=== PATIENT | male | born 1945 | race Hispanic/Latino ===

== ENCOUNTER 2022-07-27 20:21 | Inpatient (IN) | payer OTHER, SELFPAY ==
--- NOTE | ~2022-07-27 | XR_ITS ---
EXAMINATION: XR chest 2V DATE: 07/30/2022 12:54 INDICATION: Interstitial lung disease. Weakness. TECHNIQUE: Frontal and lateral views of the chest were obtained on 3 radiographs. COMPARISON: Chest CT 07/28/2022 FINDINGS: The lung volumes are normal. There is a diffuse interstitial pattern in the lungs with a lo wer lung predominance. No pleural effusion or pneumothorax. Cardiomegaly is noted. IMPRESSION: 1. Chronic interstitial lung disease. 2. Cardiomegaly. Reviewed, dictated and finalized at location A. 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
--- NOTE | ~2022-07-27 | CT_ITS ---
EXAMINATION: CT chest high resolution wo il DATE: 07/28/2022 16:17 INDICATION: Interstitial lung disease TECHNIQUE: Computed tomography (CT) of the chest was performed without intravenous contrast. The dose -length product (DLP) was 258.19 mGy-cm. Automated exposure control and iterative reconstruction tech nique were employed. COMPARISON: None FINDINGS: There are areas of septal thickening, groundglass opacity, and honeycombing throughout the lungs. There are airspace opacities of the lower lobes. No pleural effusion or pneumothorax. The hear t size is normal. There are no pathologically enlarged thoracic lymph nodes. Interstitial edematous p ancreatitis is noted. There is a healed right clavicle fracture. There is mild thoracic spondylosis. IMPRESSION: 1. Diffuse lung disease in a pattern of usual interstitial pneumonia (UIP) with superimposed airspace opacities in the lower lobes which could reflect atelectasis versus pneumonia. Reviewed, dictated and finalized at location F. [employer] IMPRESSION: 1. Diffuse lung disease in a pattern of usual interstitial pneumonia (UIP) with superimposed airspace opacities in the lower lobes which could reflect atelect asis versus pneumonia.
--- NOTE | ~2022-07-27 | US_ITS ---
EXAMINATION: US abdomen limited DATE: 07/28/2022 10:29 INDICATION: Abnormal liver function tests. Abdominal pain. TECHNIQUE: Multiple grayscale and Doppler ultrasound images of the abdomen were obtained. COMPARISON: CT abdomen and pelvis 07/28/2022 FINDINGS: The pancreas demonstrates heterogeneous echogenicity, consistent with acute interstitial pa ncreatitis. There is normal flow in main portal vein. There is portal vein thrombosis in anterior seg ment right hepatic lobe. The gallbladder is partially obscured by bowel. The gallbladder is normal in size and contains sludge. Gallbladder wall thickening is noted. There is no sonographic Johnson sign. IMPRESSION: 1. Acute interstitial pancreatitis. 2. Portal vein thrombosis in anterior segment right hepatic lobe. 3. Gallbladder sludge. Gallbladder wall thickening may be secondary to interstitial edema, chronic li giovanna disease, or chronic cholecystitis. Reviewed, dictated and finalized at location A. SS TEST TECHNICIAN IMPRESSION: 1. Acute interstitial pancreatitis. 2. Portal vein thrombosis in anterior segment right hepatic lobe. 3. Gallbladder sludge. Gallbladder wall thickening may be secondary to intersti tial edema, chronic liver disease, or chronic cholecystitis.
--- NOTE | ~2022-07-27 | MR_ITS ---
EXAMINATION: MR MRCP wo/w con/w 3D wo ind DATE: 07/28/2022 13:05 INDICATION: Elevated liver enzymes. Abdominal pain. TECHNIQUE: Magnetic resonance imaging (MRI) of the abdomen was performed without and with 17 mL Multi zohreh intravenous contrast. Sequences included coronal T2-weighted SS-FSE, coronal T2-weighted FS SS- FSE, coronal T2-weighted FS FIESTA, axial T2-weighted FS FIESTA, axial T2-weighted FIESTA, sagittal T 2-weighted SS-FSE, axial T1-weighted dual-echo FSPGR, axial T2-weighted SS-FSE, axial T1-weighted LAV A, axial T2-weighted STIR FSE. Thick-slab T2-weighted FRFSE-XL images were obtained for magnetic reso nance cholangiopancreatography (MRCP). Rotating maximum intensity projection 3-D reconstructions of t he volumetric data were created by the technologist. Postcontrast sequences included a time course of axial T1-weighted LAVA. COMPARISON: CT and ultrasound dated 07/28/2022 FINDINGS: ABDOMEN MRI: Evaluation moderately limited by motion artifact on multiple sequences particularly the fat saturated sequences including postcontrast imaging. Heart size is normal. No pericardial or pleural effusion. Peripheral lung disease in the dependent as pect of the bilateral lower lobes with appearance on prior CT favoring chronic interstitial lung dise ase although superimposed more acute pulmonary edema or pneumonia is not excludable. Absent flow voids on T2-weighted imaging corresponding geographic regions of likely compensatory roxanne rial phase enhancement consistent with portal venous thrombosis within supplying the anterior right h epatic and the anterior aspect of the lateral segments of the left hepatic lobe. There is associated periportal edema. There is peripancreatic edema surrounding the tail of the pancreas consistent with acute interstitial pancreatitis. No loculated fluid collections to suggest abscess, walled off necros is or pseudocyst formation. There are a few gallstones within the gallbladder with mild edematous gal lbladder wall thickening. There is no dilation of the gallbladder and there is no sonographic Johnson' s on a prior ultrasound to suggest acute cholecystitis and this this more likely due to either chroni c cholecystitis or liver disease as with the previous noted periportal edema. Bilateral adrenal glands are normal. Bilateral T2 hyperintense renal cysts, the largest on the left i s a 7.3 cm Bosniak 2 cyst with thin internal septations with some calcification along the internal se ptation but without a nodular enhancing soft tissue component. Visualized portion of the bowels are u nremarkable. No pathologically enlarged abdominal lymphadenopathy. Bones are unremarkable with normal marrow signal throughout. ABDOMEN MRCP: The MRCP images are also mild to moderately limited by motion artifact. Interpretations augmented by several of the T2-weighted sagittal and axial images which are less affected by the motion. The commo n bile duct measures up to 7 mm but tapers to 4 mm in diameter at the proximal common bile duct with continued gradual tapering to the ampulla. No intrahepatic biliary ductal dilation. No evident dilati on of the main pancreatic duct. No intraluminal filling defects identified to suggest obstructing cho ledocholithiasis. IMPRESSION: 1. Acute interstitial pancreatitis. 2. Cholelithiasis with wall thickening of the gallbladder but without dilation or sonographic Johnson sign to suggest acute cholecystitis and the wall thickening is more likely due to either chronic chol ecystitis or reactive edema related to the liver disease. 3. No evident choledocholithiasis or dilation of the common bile duct, main pancreatic duct or intrah epatic biliary tree. 4. Portal venous thrombosis in the anterior segment of the right hepatic lobe and in the anterior por tion of the lateral segments of the left hepatic lobe. 5. Peripheral lung disease in the lower lungs w
--- NOTE | ~2022-07-27 | CT_ITS ---
EXAMINATION: CT abdomen pelvis w con DATE: 07/28/2022 01:32 INDICATION: Epigastric and left lower quadrant abdominal pain. TECHNIQUE: Computed tomography (CT) of the abdomen and pelvis was performed with 100 mL Omnipaque 350 intravenous contrast. Automated exposure control and iterative reconstruction technique were employe d. The dose-length product was 1110.37 mGy-cm. COMPARISON: None. FINDINGS: The visualized portions of the lung bases demonstrate peripheral septal thickening and bila teral honeycombing. There are airspace and groundglass opacities in the peripheral lungs, worst in le ft lower lobe. No pleural effusion. The heart size is normal. No pericardial effusion. There is mary anne l vein thrombosis in anterior segment right hepatic lobe. There is wall thickening of the gallbladder , which is normal in size. The spleen is normal. There is fat stranding around the pancreas, consiste nt with acute interstitial pancreatitis. The adrenal glands are normal. There are cysts in the kidney s measuring up to 7.1 cm on the left. The prostate is mildly enlarged. There is diverticulosis of the colon without evidence of diverticulitis. The appendix is normal. There are no dilated loops of emre l. There are no pathologically enlarged lymph nodes. There is no free intraperitoneal fluid. There is severe lower lumbar spondylosis. IMPRESSION: 1. Acute interstitial pancreatitis. 2. Portal vein thrombosis in anterior segment right hepatic lobe. 3. Gallbladder wall thickening, which may be secondary to interstitial edema, chronic liver disease, or chronic cholecystitis. 4. Diffuse lung disease, consistent with chronic interstitial lung disease in a pattern of usual inte rstitial pneumonia. Superimposed pneumonia cannot be excluded. Reviewed, dictated and finalized at location A. 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 Acute interstitial pancreatitis. 2. Portal vein thrombosis in anterior segment right hepatic lobe. 3. Gallbladder wall thickening, which may be secondary to interstitial edema, c hronic liver disease, or chronic cholecystitis. 4. Diffuse lung disease, consistent with chronic interstitial lung disease in a pattern of usual interstitial pneumonia. Superimposed pneumonia cannot be excl uded.
[2022-07-27 20:33] VITALS: BP 147/73; PULSE 74; RESP 16; TEMP 38; O2SAT 97
[2022-07-27 21:45] LABS: Basophils Percent Auto 0.1 % (0.2-1.2); Eosinophils Percent Auto 0.2 % (0-4.4); Hematocrit 47.1 % (42.0-52.0); Hemoglobin 15.9 g/dL (14.0-18.0); Immature Granulocyte Absolute 0.14 K/mm3 (0.00-0.031); Immature Granulocyte Percent A 0.8 % (0-0.5); Lymphocytes Absolute Auto 2.06 K/mm3 (0.9-3.2); Lymphocytes Percent Auto 12.2 % (18.3-44.2); Mean Corpuscular HGB Conc 33.8 g/dl (32-36); Mean Corpuscular Hemoglobin 28.7 pg (26-34); Monocytes Absolute Auto 1.3 K/mm3 (0.1-0.6); Monocytes Percent Auto 7.5 % (2.6-8.5); Neutrophils Absolute Auto 13.4 K/mm3 (1.3-6.7); Neutrophils Percent Auto 79.2 % (45.5-73.1); Platelet Count Result 405 k/mm3 (150-375); Red Blood Count 5.54 M/mm3 (4.6-6.20); Red Cell Distribution Width 14.8 % (11.5-14.5); White Blood Count 16.9 K/mm3 (4.5-10.0)
[2022-07-27 21:48] LABS: Add Urine Microscopic? YES; Appearance Urine Clear (Clear); Bilirubin Urine 3+ (Negative); Blood Urine Negative (Negative); Color Urine Orange (Yellow); Glucose Urine UA Negative (Negative); Ketones Urine Trace mg/dL (Negative); Leukocyte Esterase Ur Negative LEU/UL (Negative); Nitrate Urine Negative (Negative); Protein Urine 1+ mg/dL (Negative); Specific Grav Ur 1.015 (1.001-1.035)
[2022-07-27 21:56] LABS: Mucus Urine Rare /lpf; RBC Urine 0-2 /hpf (0-2); Squamous Epithelial Cell Urine Rare /hpf (Few); WBC Urine 0-3 /hpf
[2022-07-27 22:07] LABS: Alanine Aminotransferase 101 U/L (6-50); Albumin Level 3.8 g/dL (3.5-5.1); Alkaline Phosphatase 443 U/L (38-126); Anion Gap 14 mmol/L (8-16); Aspartate Amino Transferase 96 U/L (17-59); Bilirubin,Total 8.5 mg/dL (0.2-1.3); Blood Urea Nitrogen 14 mg/dL (9-20); Calcium 8.5 mg/dL (8.4-10.2); Carbon Dioxide 25 mmol/L (22-30); Chloride 96 mmol/L (98-107); Estimated Glomerular Filt Rate > 60; Glucose 89 mg/dL (65-110); Potassium 4.1 mmol/L (3.4-5.0); Sodium 135 mmol/L (137-145)
[2022-07-27 23:04] VITALS: BP 136/81; PULSE 71; RESP 30; O2SAT 97
[2022-07-27 23:05] VITALS: O2SAT 97
[2022-07-27 23:35] VITALS: O2SAT 97
[2022-07-27 23:37] LABS: Lipase 6610 U/L (23-300)
[2022-07-27 23:48] VITALS: O2SAT 96
[2022-07-28] VITALS (13 sets, daily range): BP systolic 102–133; BP diastolic 57–72; PULSE 60–96; RESP 14–20; TEMP 36.4–36.7; O2SAT 94–99; BMI 25.0
[2022-07-28] MEDS: SODIUM CHLORIDE 0.9% IV 1,000 ML 999 ML IV CONT ×2 (00:03→02:51)
[2022-07-28] MEDS: ONDANSETRON INJ 4 MG/2 ML VIAL IV PUSH (00:03)
[2022-07-28] MEDS: IBUPROFEN IV 400 MG in SODIUM CHLORIDE 0.9% IV 100 ML 200 MG IVPB (00:12)
--- NOTE | 2022-07-28 00:23 | ED.ABDPAIN ---
HPI - Abdominal Pain General Chief Complaint: Abdominal Pain <CHILANGO Thurman Last Filed: 07/28/22 03:43> Stated Complaint: Abd pain, n/v/d after eating <CHILANGO Thurman Last Filed: 07/28/22 03:43> Time Seen by Provider: 07/27/22 22:59 <CHILANGO Thurman Last Filed: 07/28/22 03:43> Source: patient and family <CHILANGO Thurman Last Filed: 07/28/22 03:43> Mode of arrival: ambulatory <CHILANGO Thurman Last Filed: 07/28/22 03:43> Limitations: language barrier <CHILANGO Thurman Last Filed: 07/28/22 03:43> History of Present Illness HPI narrative: Patient is a 77-year-old male who presents the ED with report of abdominal pain. Patient is primarily Mozambican-speaking. Family member is at bedside assisted in providing information. [employer] intensive care nurse was offered. Patient reports having pain for the past 5 to 6 days in his upper abdomen. He also reports subjective fevers at home, nausea, vomiting, diarrhea. Denies rectal bleeding, urinary sx's. He last took ibuprofen earlier this morning. He has never had pain like this before. <Albania Salgado PA-C - Last Filed: 07/28/22 03:43> Related Data Allergies/Adverse Reactions: Allergies Allergy/AdvReac Type Severity Reaction Status Date / Time No Known Allergies Allergy Verified 07/28/22 00:02 <CHILANGO Thurman Last Filed: 07/28/22 03:43> Review of Systems Review of Systems: CONSTITUTIONAL: Reports fever. CARDIOVASCULAR: Denies chest pain. RESPIRATORY: Denies dyspnea. GASTROINTESTINAL: Reports upper abdominal pain, nausea, vomiting, and diarrhea. Denies rectal bleeding. GENITOURINARY: Denies dysuria or hematuria. <CHILANGO Thurman Last Filed: 07/28/22 03:43> All systems reviewed & are unremarkable except as noted in HPI and below <Albania Salgado PA-C - Last Filed: 07/28/22 03:43> PMFSH Past Medical History Medical History: Medical History (Updated 07/28/22 @ 03:43 by Albania Salgado PA-C) No pertinent past medical history <Albania Salgado PA-C - Last Filed: 07/28/22 03:43> Surgical History Surgical History: Surgical History (Updated 07/28/22 @ 00:26 by Albania Salgado PA-C) No pertinent past surgical history <Albania Salgado PA-C - Last Filed: 07/28/22 03:43> Social History Social History: Social History (Updated 07/28/22 @ 00:26 by Albania Salgado PA-C) Smoking status: Never smoker <Albania Salgado PA-C - Last Filed: 07/28/22 03:43> Exam Narrative: GENERAL: Well appearing, well-nourished, non-toxic, in no acute distress. HEAD: Normocephalic, atraumatic. EYES: PERRLA, EOMI, scleral icterus. NECK: Supple. No adenopathy, no masses. RESPIRATORY: Airway patent, respirations nonlabored. Coarse breath sounds in bilateral lung bases. No wheezing. CARDIOVASCULAR: Regular rate and rhythm without murmurs, rubs, or gallops. Peripheral pulses 2+ and equal bilaterally. ABDOMINAL: Soft, tenderness palpation in epigastric/RUQ region, periumbilical region, left lower quadrant. Nondistended, no hepatosplenomegaly. Normoactive BS. MUSCULOSKELETAL: Moves all extremities. Strength/ROM intact without gross deformities. SKIN: Warm, dry, appears jaundiced. NEURO: A&O X3. Speech clear. Cranial nerves II-XII grossly intact. Steady gait. No ataxic movements. PSYCHIATRIC: Appropriate mood and affect. Normal interaction. <Albania Salgado PA-C - Last Filed: 07/28/22 03:43> Course AUTO BODY MECHANIC APPRENTICE/PA Physician Supervision For this patient encounter, I reviewed the AUTO BODY MECHANIC APPRENTICE or PA documentation, treatment plan, and medical decision making; and I had [id number] time with this patient. Patient is laying in bed, no acute distress, non toxic appearing. ABdomen is benign. He is jaundiced. <Janis Naylor MD - Last Filed: 07/28/22 04:37> Consultations Consultation #1: Jolene
[2022-07-28 00:42] LABS: Lactic Acid Reflex 1.4 mmol/L (0.7-2.0)
[2022-07-28 01:03] LABS: Bilirubin Direct 3.2 mg/dL (0-0.3)
[2022-07-28 04:20] LABS: SARS-CoV-2 RNA PCR Negative
--- NOTE | 2022-07-28 04:53 | ADMGEN ---
This patient, Nelson Barajas, was admitted to [facility] Surg Room 330-01. Patient/family oriented to hospital policies and general routines including ID bracelet, bed and alarms, visiting hours, pain management, procedures, bathroom and other care routines, personal items, smoking policy, room service/diet, and visiting hours. Information on how to activate the Rapid Response Team has been discussed. Patient/Family are encouraged to report perceived risks to care and to ask questions if they do not understand what they are told or what they should do.
[2022-07-28] MEDS: SODIUM CHLORIDE 0.9% IV 1,000 ML 100 ML IV CONT (04:59)
[2022-07-28] MEDS: PANTOPRAZOLE SODIUM IV 40 MG VIAL IV PUSH ×2 (08:11→17:05)
--- NOTE | 2022-07-28 08:38 | PM.IMHP ---
H&P: HPI History of Present Illness Date/Time: 07/28/22 08:38 Chief Complaint: Abdominal pain, nausea with emesis Narrative: 77-year-old male who was exclusively Bahraini-speaking, translated by granddaughter, with past medical history significant for a former smoker and former heavy drinker who was recently diagnosed with mild hyperlipidemia is presenting with 2-3 days of severe epigastric abdominal pain associated with nausea and emesis. No chest pain or shortness of breath. No nausea, vomiting or diarrhea. No fevers or chills. No sick contacts, no recent travel. No history of diabetes, being stung by a scorpion or extreme hyperlipidemia. In the ER, he was found to have acute pancreatitis with elevated lipase and interstitial pancreatitis noted on CT scan. He was also found to have a portal vein thrombosis in the anterior segment of the right hepatic lobe as well as gallbladder thickening. There was also incidental finding of diffuse lung disease consistent with interstitial lung disease with possible pneumonia. 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 They deny any history of blood clots. No other past medical history noted except for CVA and hyperlipidemia on a statin. General surgery and GI were both consulted for further evaluation. Review of Systems Review of Systems: 12 point review of systems was assessed and was negative except as noted in the HPI [facility] Past Medical History Medical History (Updated 07/28/22 @ 19:06 by Aide James DO) CVA (cerebral vascular accident) Elevated liver enzymes Gallstone pancreatitis Interstitial lung disease No pertinent past medical history Upper abdominal pain Surgical History Surgical History No pertinent past surgical history Family History Family History Other No pertinent family history Social History Social History Smoking status: Former smoker Smoking end date: 09/14/17 Additional smoking assessment comments: Granddaughter states he smoked approximately 4 cigarettes per day Alcohol intake: former Alcohol use details: granddaughter states he was a heavy drinker prior to 5 years ago. Substance use: never Lack of Transportation: No Lack of Food: Never True Current Housing: I Have Housing Concerned About Future Housing: No Difficulty Paying Gas/Electric Bills: No Difficulty Paying for Meds: No Currently Unemployed: No Education: Don't Know Difficulty w/ Childcare or Family Care: No Spiritual care concerns: No Meds Home Medications and Allergies Home Medications Medication Instructions Recorded Confirmed Type rosuvastatin 10 mg tablet 10 mg PO DAILY 07/28/22 07/28/22 History Allergies Allergy/AdvReac Type Severity Reaction Status Date / Time No Known Allergies Allergy Verified 07/28/22 00:02 Vital Signs Vital Signs - 24 hr 07/27/22 20:33 07/27/22 23:04 07/27/22 23:05 Temperature 100.4 F H Pulse Rate 74 71 Respiratory Rate 16 30 H Blood Pressure 147/73 H 136/81 Pulse Oximetry 97 97 97 Oxygen Delivery Room Air 07/28/22 02:52 07/27/22 23:35 07/27/22 23:48 Temperature Pulse Rate 60 Respiratory Rate 18 Blood Pressure 124/71 Pulse Oximetry 96 97 96 Oxygen Delivery 07/28/22 00:14 07/28/22 00:15 07/28/22 00:40 Temperature Pulse Rate Respiratory Rate Blood Pressure Pulse Oximetry 97 97 96 Oxygen Delivery 07/28/22 00:45 07/28/22 01:00 07/28/22 01:01 Temperature Pulse Rate Respiratory Rate Blood Pressure 118/67 Pulse Oximetry 96 95 97 Oxygen Delivery 07/28/22 03:23 07/28/22 03:30 07/28/22 04:19 Temperature Pulse Rate 78 Respiratory Rate 18 18 Blood Pressure 127/72 Pulse Oximet
[2022-07-28] MEDS: IBUPROFEN 600 MG TABLET PO (13:18)
[2022-07-28] MEDS: ROSUVASTATIN 10 MG TABLET PO (13:21)
--- NOTE | 2022-07-28 15:05 | PC.NURSE ---
notified provider at 1500 of possibility of sepis per sepsis protocol.
[2022-07-28 16:26] LABS: Basophils Percent Auto 0.1 % (0.2-1.2); Eosinophils Absolute Auto 0.1 K/mm3 (0-0.3); Eosinophils Percent Auto 0.8 % (0-4.4); Hematocrit 40.1 % (42.0-52.0); Hemoglobin 13.7 g/dL (14.0-18.0); Immature Granulocyte Absolute 0.11 K/mm3 (0.00-0.031); Immature Granulocyte Percent A 0.8 % (0-0.5); Lymphocytes Absolute Auto 1.97 K/mm3 (0.9-3.2); Lymphocytes Percent Auto 14.2 % (18.3-44.2); Mean Corpuscular HGB Conc 34.2 g/dl (32-36); Mean Corpuscular Volume 84.8 fl (80-100); Mean Platelet Volume 10.4 fl (7.4-10.4); Monocytes Absolute Auto 0.9 K/mm3 (0.1-0.6); Monocytes Percent Auto 6.8 % (2.6-8.5); Neutrophils Absolute Auto 10.7 K/mm3 (1.3-6.7); Neutrophils Percent Auto 77.3 % (45.5-73.1); Platelet Count Result 382 k/mm3 (150-375); Red Blood Count 4.73 M/mm3 (4.6-6.20); Red Cell Distribution Width 15.1 % (11.5-14.5); White Blood Count 13.9 K/mm3 (4.5-10.0)
--- NOTE | 2022-07-28 16:41 | PM.CNGS ---
Assessment and Plan Assessment and plan (1) Portal vein thrombosis: Code(s): I81 - Portal vein thrombosis Status: Acute Assessment and Plan: this is seen on both patient CT early this morning and then on the MRCP done this afternoon. Would recommend at anticoagulation with a heparin drip and continued NPO status with rehydration. Pancreatitis can occasionally cause this. Therefore will continue typical conservative management of pancreatitis and monitor patient's labs. Connect consideration could be given to further workup of coagulation or thrombotic factors. (2) Acute pancreatitis: Qualifiers: Acute pancreatitis complication: no infection or necrosis Pancreatitis type: unspecified pancreatitis type Qualified Code(s): K85.90 - Acute pancreatitis without necrosis or infection, unspecified Code(s): K85.90 - Acute pancreatitis without necrosis or infection, unspecified Status: Acute Assessment and Plan: Lipase significantly elevated. Since the patient has some gallstones by MRCP possible sludge by ultrasound would eventually recommend consideration for laparoscopic cholecystectomy but in the face of the portal vein thrombosis and his pancreatitis would hold off. There is not signs of acute cholecystitis at this time so treatment with antibiotics and low-fat diet is recommended. (3) Hyperbilirubinemia: Code(s): E80.6 - Other disorders of bilirubin metabolism Status: Acute Assessment and Plan: Possibly related to the portal vein thrombosis. MRCP has cleared his common duct. (4) Thickening of wall of gallbladder: Code(s): K82.8 - Other specified diseases of gallbladder Status: Acute Assessment and Plan: Seen on all 3 studies. This may be related to interstitial thickening versus chronic cholecystitis. (See ultrasound report) recommend monitoring patient's symptoms and labs. History of Present Illness Consult details Consult date: 07/28/22 Reason for consult: abdominal pain (Newly discovered pancreatitis) Requesting physician: Aide James, DO Narrative: ? ? ? the patient is a 77-year-old [place] male who presented to the [facility] ED early this morning with report of abdominal pain.? Patient is primarily Persian-speaking.? Family member is at bedside assisted in providing information. ( granddaughter was present for my interview).? 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 Patient reports having pain for the past 5 to 6 days in his upper abdomen. patient also stated through granddaughter that he also recently had a cough with cold-like symptoms but no fever.? He also reports subjective fevers at home, nausea, vomiting, diarrhea.? Denies rectal bleeding, urinary sx's.? He last took ibuprofen earlier this morning And yesterday just prior to coming.? He has never had pain like this before. As far as I can tell through her interpretation he has also never had abdominal surgery before. Patient has a history of drinking heavily in the past but stopped about 5 years ago. He also has a history of smoking cigarettes until about 5-7 years ago. Typically he would smoke about 4 cigarettes a day according to the granddaughter. Workup in the emergency room in tailed labs and a CT scan which suggested portal vein thrombosis in 1 segment of the right lobe of the liver along with possible thickening of the gallbladder wall. The latter is the reason I was called. This morning he underwent a abdominal ultrasound which then also showed signs of gallbladder wall thickening but it was felt this could be either related chronic cholecystitis there was no pericholecystic fluid or other signs of acute cholecystitis and there was no Johnson sign. Because of his elevated bilirubin he also underwent MRCP which showed a few small gallstones no signs of true inflammation of the gallbladder and confirmed suspicion for portal vein thrombosis in both the right lobe an
[2022-07-28] MEDS: HEPARIN SODIUM 5,000 UNITS/ML VIAL 6500 UNITS IV PUSH (17:03)
[2022-07-28] MEDS: HEPARIN SOD/D5W 100 UNITS/ML 25,000 UNITS/250 ML BAG 15 UNITS IV CONT (17:03)
--- NOTE | 2022-07-28 17:09 | WPDGICN ---
Assessment and Plan Assessment and plan (1) Gallstone pancreatitis: Code(s): K85.10 - Biliary acute pancreatitis without necrosis or infection Status: Acute Assessment and Plan: new finding, npo status no alcohol reviewed mrcp and found PVT- probably acute and could be related to new onset of pancreatitis, will ask hematology for anticoagulation surgery on board no need of ercp (no choledocholithiasis) will get also triglycerides level (2) Hyperbilirubinemia: Code(s): E80.6 - Other disorders of bilirubin metabolism Status: Acute Assessment and Plan: probably from GS pancreatitis and PVT monitor and trend lft (3) Portal vein thrombosis: Code(s): I81 - Portal vein thrombosis Status: Acute Assessment and Plan: probably acute and will need 3 months of AC (4) Elevated liver enzymes: Code(s): R74.8 - Abnormal levels of other serum enzymes Status: Acute Assessment and Plan: trend get hepatitis panel (5) Upper abdominal pain: Code(s): R10.10 - Upper abdominal pain, unspecified Status: Acute GI Consult Note Consult date/time: 07/28/22 17:09 Reason for consult: acute pancreatitis, PVT HPI: Nelson Barajas is a 77 year old male who is iranian speaking, history of CVA and relatively poor historian- family members at bedside (they say that he gets confused since had cva). He came here with 2-3 days of worsening pain in upper abdomen that got severe, also nausea. ER evaluation showed GS pancreatitis, with lipase 6000, bili 80, transaminases 100, hb 15, wbc 16k. MRCP- Acute interstitial pancreatitis. 2. Cholelithiasis with wall thickening of the gallbladder but without dilation or sonographic Johnson sign to suggest acute cholecystitis and the wall thickening is more likely due to either chronic cholecystitis or reactive edema related to the liver disease. 3. No evident choledocholithiasis or dilation of the common bile duct, main pancreatic duct or intrahepatic biliary tree. 4. Portal venous thrombosis in the anterior segment of the right hepatic lobe and in the anterior portion of the lateral segments of the left hepatic lobe. No alcohol intake and no previous pancreatitis. Review of Systems Constitutional: Constitutional: Denies headache(s) and Denies weakness Eyes: Eyes: Denies blurry vision ENT: Reports Normal hearing present, Denies headache(s) and Denies neck pain Cardiovascular: Cardiovascular: Denies chest pain and Denies dyspnea Respiratory: Respiratory: Denies dyspnea Gastrointestinal: Gastrointestinal: Reports abdominal pain and Reports nausea Genitourinary: Genitourinary: Denies dysuria Musculoskeletal: Musculoskeletal: Denies neck pain Integumentary/Breasts: Skin/Breast: Denies dry skin Neurologic: Reports Normal hearing present, Denies headache(s) and Denies weakness Psychiatric: Psychiatric: Denies anxiety Endocrine: Endocrine: Denies change in body appearance Hematologic/Lymphatic: Hematologic/Lymphatic: Denies easy bleeding Allergic/Immunologic: Allergic/Immunologic: Denies urticaria PMFSH Past Medical History Medical History (Updated 07/28/22 @ 17:14 by Leon Freire MD) Elevated liver enzymes Gallstone pancreatitis No pertinent past medical history Upper abdominal pain Surgical History Surgical History No pertinent past surgical history Family History Family History Other No pertinent family history Social History Social History (Updated 07/28/22 @ 17:07 by Americo Dey MD) Smoking status: Former smoker Smoking end date: 09/14/17 Additional smoking assessment comments: Granddaughter states he smoked approximately 4 cigarettes per day Alcohol intake: former Alcohol use details: granddaughter states he was a heavy drinker prior to 5 years ago. Substance
[2022-07-28] MEDS: SODIUM CHLORIDE 0.9% IV 1,000 ML 150 ML IV CONT (20:32)
[2022-07-28 21:16] LABS: INR 1.3; Prothrombin Time 16.1 Seconds (11.1-14.7)
[2022-07-28 23:44] LABS: Partial Thromboplastin Time 61.9 SECONDS (22.3-36.8)
[2022-07-29] MEDS: SODIUM CHLORIDE 0.9% IV 1,000 ML 150 ML IV CONT ×3 (04:05→21:52)
--- NOTE | 2022-07-29 04:06 | PC.NURSE ---
Pt lost IV access for heparin drip. Pt had new IV placed in R wrist. Pt has slept most of the time. Pt unable to communicate due to language barrier. Will continue to monitor pt.
[2022-07-29 06:00] VITALS: BP 115/56; PULSE 64; RESP 18; TEMP 36.4; O2SAT 94
[2022-07-29 06:36] LABS: Basophils Percent Auto 0.3 % (0.2-1.2); Eosinophils Absolute Auto 0.3 K/mm3 (0-0.3); Eosinophils Percent Auto 2.8 % (0-4.4); Hematocrit 40.2 % (42.0-52.0); Hemoglobin 13.5 g/dL (14.0-18.0); Immature Granulocyte Absolute 0.11 K/mm3 (0.00-0.031); Immature Granulocyte Percent A 0.9 % (0-0.5); Lymphocytes Percent Auto 12.4 % (18.3-44.2); Mean Corpuscular HGB Conc 33.6 g/dl (32-36); Mean Corpuscular Hemoglobin 28.8 pg (26-34); Mean Corpuscular Volume 85.7 fl (80-100); Mean Platelet Volume 10.6 fl (7.4-10.4); Monocytes Absolute Auto 0.9 K/mm3 (0.1-0.6); Monocytes Percent Auto 7.2 % (2.6-8.5); Neutrophils Absolute Auto 9.2 K/mm3 (1.3-6.7); Neutrophils Percent Auto 76.4 % (45.5-73.1); Platelet Count Result 420 k/mm3 (150-375); Red Blood Count 4.69 M/mm3 (4.6-6.20); Red Cell Distribution Width 15.5 % (11.5-14.5); White Blood Count 12.1 K/mm3 (4.5-10.0)
[2022-07-29 06:42] LABS: Partial Thromboplastin Time 59.4 SECONDS (22.3-36.8)
[2022-07-29 06:51] LABS: Alanine Aminotransferase 70 U/L (6-50); Albumin Level 2.9 g/dL (3.5-5.1); Alkaline Phosphatase 305 U/L (38-126); Anion Gap 12 mmol/L (8-16); Aspartate Amino Transferase 78 U/L (17-59); Blood Urea Nitrogen 18 mg/dL (9-20); Calcium 7.6 mg/dL (8.4-10.2); Carbon Dioxide 21 mmol/L (22-30); Chloride 106 mmol/L (98-107); Estimated CRCL calculation 84 ml/min; Estimated Glomerular Filt Rate > 60; Glucose 66 mg/dL (65-110); Potassium 3.5 mmol/L (3.4-5.0); Sodium 139 mmol/L (137-145); Triglycerides 295 mg/dL (<150)
[2022-07-29 07:06] LABS: Lipase 2831 U/L (23-300)
[2022-07-29 07:25] LABS: Hepatitis B Surface Antigen Negative (Negative)
[2022-07-29 07:32] LABS: HAV RESULT Negative (Negative)
[2022-07-29 07:42] LABS: Hepatitis C Virus Antibody Negative (Negative)
[2022-07-29 07:46] LABS: Hepatitis B Core IgM Result Negative (Negative)
[2022-07-29] MEDS: HEPARIN SODIUM 5,000 UNITS/ML VIAL 3500 UNITS IV PUSH (08:54)
[2022-07-29] MEDS: PANTOPRAZOLE SODIUM IV 40 MG VIAL IV PUSH ×2 (09:03→17:48)
--- NOTE | 2022-07-29 10:28 | PM.PNGS ---
Progress Note: A&P Assessment and Plan (1) Upper abdominal pain: Code(s): R10.10 - Upper abdominal pain, unspecified Status: Acute Assessment and Plan: Was likely secondary to his pancreatitis which seems to be improving. (2) Gallstone pancreatitis: Code(s): K85.10 - Biliary acute pancreatitis without necrosis or infection Status: Acute Assessment and Plan: MRCP showed no signs of common bile duct stones and no true inflammation of the gallbladder at this time. In view of the portal vein thrombosis would recommend conservative follow-up an event show laparoscopic cholecystectomy once is appropriate course of anticoagulation is complete. (3) Portal vein thrombosis: Code(s): I81 - Portal vein thrombosis Status: Acute Assessment and Plan: See CT scan and MRCP results. Agree with anticoagulation. Patient on heparin drip at this time. (4) Hyperbilirubinemia: Code(s): E80.6 - Other disorders of bilirubin metabolism Status: Acute Assessment and Plan: Slightly improved today. (5) Thickening of wall of gallbladder: Code(s): K82.8 - Other specified diseases of gallbladder Status: Acute Assessment and Plan: May have chronic cholecystitis with sludge and small gallstones. (See MRCP report). In view of the portal vein thrombosis would recommend conservative follow-up an event show laparoscopic cholecystectomy once is appropriate course of anticoagulation is complete. Plan At this time since there is no surgical care needed I will sign off. Please feel free to call us back for re-consultation if something comes up that needs us. Subjective Subjective Date/Time Seen: 07/29/22 08:20 Patient reports: no new complaints Interval history: As best I can tell without using the appeals analyst patient is stating he has no abdominal pain. Review of Systems Review of Systems: ROS unobtainable: Yes other ( Not attempted today. (See yesterday's consult note) --- language barrier) Exam Const: General: cooperative, comfortable, alert and awake HENMT: Head: normal to inspection Mouth: Yes moist mucous membranes Eyes: Pupils: Equal, round and reactive pupils present Neck: Neck: normal visual inspection and no JVD Chest: Chest palpation & inspection: normal inspection of the chest Resp: Effort & Inspection: normal respiratory effort GI: Inspection: normal to inspection and other ( rounded, no umbilical hernia) GI Palp: No abdominal tenderness, No Tenderness to palpation present (GI) and No Guarding due to palpation present (GI) Auscultation: normal bowel sounds Neuro: Cranial nerves: Yes Equal, round and reactive pupils present Objective Data Vital Signs Vital Signs: Vital Signs - 24 hr 07/28/22 14:20 07/28/22 22:00 07/28/22 20:50 Temperature 36.7 C 36.4 C L Pulse Rate 96 60 Respiratory Rate 14 20 Blood Pressure 102/71 108/58 L Pulse Oximetry 97 97 Oxygen Delivery Room Air 07/29/22 06:00 Temperature 36.4 C Pulse Rate 64 Respiratory Rate 18 Blood Pressure 115/56 L Pulse Oximetry 94 Oxygen Delivery Intake/Output Intake/Output: Intake & Output 07/26/22 07/27/22 07/28/22 07/29/22 23:59 23:59 23:59 23:59 Intake Total 3304 1050 Balance 3304 1050 Meds/Results Medications: Active Medications Generic Name Dose Route Start Last Admin Trade Name Freq PRN Reason Stop Dose Admin Heparin Sodium (Porcine) 6,500 units 07/28/22 15:28 Heparin Sodium 5,000 Units/Ml Vial IV PUSH PRN PRN aPTT less than 55 seconds Heparin Sodium (Porcine) 3,500 units 07/28/22 15:28 07/29/22 08:54 Heparin Sodium 5,000 Units/Ml Vial IV PUSH 3,500 units PRN PRN Administration aPTT 55 - 70 seconds Piperacillin/Tazobactam/Dextrose 3.375 gm in 50 mls @ 100 mls/hr 07/28/22 09:00 07/29/22 09:10 Zosyn 3.375 Gm/D5w 50ml Pm IVPB 100 mls/hr Q6H KAM Administration Sodium Chlor
--- NOTE | 2022-07-29 11:21 | PM.IMPN ---
Progress Note: A&P Assessment and Plan (1) Portal vein thrombosis: Code(s): I81 - Portal vein thrombosis Status: Acute Assessment and Plan: Appreciate Hematology/Oncology consultation, continue heparin drip, no need for hypercoagulable workup at this time, no family history or personal history of blood clots, will discharge on Eliquis 5 mg twice daily and follow-up with Oncology in the office, CT scan of the abdomen to be done in 2 months and potentially hypercoagulable workup can be performed at that time (2) Acute pancreatitis: Qualifiers: Acute pancreatitis complication: no infection or necrosis Pancreatitis type: unspecified pancreatitis type Qualified Code(s): K85.90 - Acute pancreatitis without necrosis or infection, unspecified Code(s): K85.90 - Acute pancreatitis without necrosis or infection, unspecified Status: Acute Assessment and Plan: Improving, started on clear liquid diet, appreciate GI consultation (3) Hyperbilirubinemia: Code(s): E80.6 - Other disorders of bilirubin metabolism Status: Acute Assessment and Plan: Improving, defer further management to GI (4) Interstitial lung disease: Code(s): J84.9 - Interstitial pulmonary disease, unspecified Status: Acute Assessment and Plan: New finding of usual interstitial pneumonia on CT chest, consult to pulm pending for further care and outpatient management, no intervention necessary at this time, stable Plan DVT prophylaxis with heparin drip GI prophylaxis with PPI Code status full code Subjective Date/time seen: 07/29/22 11:21 Interval history: No overnight events noted. No chest pain or shortness of breath. No nausea, vomiting or diarrhea. No fevers or chills. Patient states his abdominal pain is completely resolved at this time. He denies any cough. Review of Systems Review of Systems: 12 point review of systems was assessed and was negative except as noted in the HPI Exam Narrative: General: Alert oriented per baseline, no acute distress HEENT: Atraumatic, normocephalic, mucous membranes moist CV: Regular rate and rhythm, S1, S2 Lungs: Clear to auscultation bilaterally, no rales or crackles noted, no wheezes, good air entry Abdomen: Nontender to palpation Extremities: Normal to inspection Skin: No rashes noted, no lesions or wounds seen Objective Data Vital Signs Vital Signs: Vital Signs - 24 hr 07/28/22 14:20 07/28/22 22:00 07/28/22 20:50 Temperature 98.1 F 97.5 F L Pulse Rate 96 60 Respiratory Rate 14 20 Blood Pressure 102/71 108/58 L Pulse Oximetry 97 97 Oxygen Delivery Room Air 07/29/22 06:00 Temperature 97.6 F Pulse Rate 64 Respiratory Rate 18 Blood Pressure 115/56 L Pulse Oximetry 94 Oxygen Delivery Intake/Output Intake/Output: Intake & Output 07/26/22 07/27/22 07/28/22 07/29/22 23:59 23:59 23:59 23:59 Intake Total 3304 1050 Balance 3304 1050 Meds/Results Medications: Active Medications Generic Name Dose Route Start Last Admin Trade Name Freq PRN Reason Stop Dose Admin Heparin Sodium (Porcine) 6,500 units 07/28/22 15:28 Heparin Sodium 5,000 Units/Ml Vial IV PUSH PRN PRN aPTT less than 55 seconds Heparin Sodium (Porcine) 3,500 units 07/28/22 15:28 07/29/22 08:54 Heparin Sodium 5,000 Units/Ml Vial IV PUSH 3,500 units PRN PRN Administration aPTT 55 - 70 seconds Piperacillin/Tazobactam/Dextrose 3.375 gm in 50 mls @ 100 mls/hr 07/28/22 09:00 07/29/22 09:10 Zosyn 3.375 Gm/D5w 50ml Pm IVPB 100 mls/hr Q6H KAM Administration Sodium Chloride 1,000 mls @ 150 mls/hr 07/28/22 03:25 07/29/22 04:05 Normal Saline Iv IV CONT 150 mls/hr .Q6H40M KAM Administration Heparin Sodium/Dextrose 25,000 units in 250 mls @ 17 mls/hr 07/28/22 16:00 07/29/22 08:56 Heparin Sodium/D5w 100 Units/Ml IV CONT 1,700 units/hr .[id number] KAM 17 mls/hr Titration
--- NOTE | 2022-07-29 12:55 | PDONCCN ---
HPI - Date of Consult Date/Time: 07/29/22 12:55 Requesting Physician: Dione Hood DO Primary Care Provider: Gio ByrdJocelyne - Consult Narrative Reason for consult: Portal vein thrombosis. Narrative: Nelson Barajas is a 77 year old male without any history of previous thromboembolic events. Patient does not speak Spanish. History was obtained over the phone with granddaughter and the daughter present in the room. Patient came into the hospital with abdominal pain along with some nausea and vomiting. His symptoms were going on for last 2-3 days. He denies any bleeding and bruising. CT scan showed acute pancreatitis and also portal vein thrombosis. He denies any previous history of liver disease and heavy alcohol intake. He was started on heparin and already feeling better with improvement in abdominal pain. He denies any recent injury and trauma. Denies any recent traveling history and surgery. He also denies any family history of thromboembolic events. Review of Systems - Review of Systems All systems reviewed & are unremarkable except as noted in HPI and bel - Neurologic Reports hearing normal, Denies abnormal speech, Denies confusion, Denies headache(s), Denies weakness [facility] Medical History: Medical History (Last Updated 07/28/22 @ 19:06 by Aide James DO) CVA (cerebral vascular accident) Elevated liver enzymes Gallstone pancreatitis Interstitial lung disease No pertinent past medical history Upper abdominal pain Surgical History: Surgical History (Last Reviewed 07/28/22 @ 19:05 by Aide James DO) No pertinent past surgical history Family History: Family History (Last Reviewed 07/28/22 @ 19:05 by Aide James DO) Other No pertinent family history - Social History Social History: Social History (Last Reviewed 07/28/22 @ 19:05 by Aide James DO) Alcohol Use: Alcohol intake: former Alcohol use details: granddaughter states he was a heavy drinker prior to 5 years ago. Substance Use: Substance use: never Others: Spiritual care concerns: No Smoking Status: Smoking status: Former smoker Smoking end date: 09/14/17 Comments: Additional smoking assessment comments: Granddaughter states he smoked approximately 4 cigarettes per day Social Determinants of Health: Has the Lack of Transportation Kept You From Medical Appointments or From Getting Medications?: No Within the Past 12 Months, Were You Worried Whether Your Food Would Run Out Before You Got Money to Buy More?: Never True What is Your Housing Situation Today?: I Have Housing Are You Worried That in the Next 2 Months, You May Not Have Your Own Housing to Live In?: No Do You Have Trouble Paying Your Heating Or Electricity Bill?: No Do You Have Trouble Paying For Medicines?: No Are You Currently Unemployed and Looking for Work?: No Highest Level of Education Completed: Don't Know Do You Have Trouble With Childcare or the Care of a Family Member?: No Exam - Vital Signs Vital Signs - 24 hr 07/28/22 14:20 07/28/22 22:00 07/28/22 20:50 Temperature 36.7 C 36.4 C L Pulse Rate 96 60 Respiratory Rate 14 20 Blood Pressure 102/71 108/58 L Pulse Oximetry 97 97 Oxygen Delivery Room Air 07/29/22 06:00 Temperature 36.4 C Pulse Rate 64 Respiratory Rate 18 Blood Pressure 115/56 L Pulse Oximetry 94 Oxygen Delivery - Exam HEENT: EOMI, PERRLA Neck: supple. No: JVD Lungs: clear to auscultation, normal air movement Heart: no murmurs, gallops, or rubs, regular rhythm, regular rate Abdomen: abdomen soft, non-distended, normal bowel sounds Extremities: normal pulses Integumentary: no abnormalities Neurological: normal speech Psychological: mental status NL, mood NL - Lab Results Laboratory Last Values WBC 12.1 K/mm3 (4.5-10.0) H 07/29/22 05:45 RBC 4.69 M/mm3 (4.6-6.20) 07/29/22 05:45 Hgb
[2022-07-29] MEDS: HEPARIN SOD/D5W 100 UNITS/ML 25,000 UNITS/250 ML BAG 17 UNITS IV CONT (13:31)
[2022-07-29 14:00] VITALS: BP 135/78; PULSE 66; RESP 14; TEMP 36.9; O2SAT 95
--- NOTE | 2022-07-29 14:52 | WPDGIPROGNO ---
Progress Note: A&P Assessment and Plan (1) Gallstone pancreatitis: Code(s): K85.10 - Biliary acute pancreatitis without necrosis or infection Status: Acute Assessment and Plan: doing better, bili high but trending down, no choledocholithiasis evaluated by surgery (2) Portal vein thrombosis: Code(s): I81 - Portal vein thrombosis Status: Acute Assessment and Plan: on heparin gtt and will go home with oral anticoagulation- seeing by hematology (3) Elevated liver enzymes: Code(s): R74.8 - Abnormal levels of other serum enzymes Status: Acute Assessment and Plan: monitor, trending down (4) Upper abdominal pain: Code(s): R10.10 - Upper abdominal pain, unspecified Status: Acute Assessment and Plan: improving, will start liquid diet (5) Interstitial lung disease: Code(s): J84.9 - Interstitial pulmonary disease, unspecified Status: Acute Subjective Date/time seen: 07/29/22 14:52 Interval history: less pain and feeling better, on heparin gtt Review of Systems Review of Systems: All systems reviewed & are unremarkable except as noted in HPI and below Exam Const: General: comfortable and no acute distress HENMT: Face/Nose/Sinus: Normal nares present Eyes: General: appearance normal, both eyes and all related structures Neck: Neck: no JVD Resp: Auscultation: clear to auscultation bilaterally Cardio: Rate: regular rate Rhythm: regular rhythm GI: Inspection: non-distended GI Palp: Yes Soft to palpation Other: less tender, no rebound Skin: General skin exam: normal color Neuro: General: gait normal Speech: normal speech Extrem: General: normal to inspection Psych: Mental Status: mental status grossly normal Objective Data Vital Signs Vital Signs: Vital Signs - 24 hr 07/28/22 22:00 07/28/22 20:50 07/29/22 06:00 Temperature 97.5 F L 97.6 F Pulse Rate 60 64 Respiratory Rate 20 18 Blood Pressure 108/58 L 115/56 L Pulse Oximetry 97 94 Oxygen Delivery Room Air 07/29/22 14:00 Temperature 98.4 F Pulse Rate 66 Respiratory Rate 14 Blood Pressure 135/78 Pulse Oximetry 95 Oxygen Delivery Intake/Output Intake/Output: Intake & Output 07/26/22 07/27/22 07/28/22 07/29/22 23:59 23:59 23:59 23:59 Intake Total 3304 2300 Balance 3304 2300 Meds/Results Medications: Active Medications Generic Name Dose Route Start Last Admin Trade Name Freq PRN Reason Stop Dose Admin Heparin Sodium (Porcine) 6,500 units 07/28/22 15:28 Heparin Sodium 5,000 Units/Ml Vial IV PUSH PRN PRN aPTT less than 55 seconds Heparin Sodium (Porcine) 3,500 units 07/28/22 15:28 07/29/22 08:54 Heparin Sodium 5,000 Units/Ml Vial IV PUSH 3,500 units PRN PRN Administration aPTT 55 - 70 seconds Piperacillin/Tazobactam/Dextrose 3.375 gm in 50 mls @ 100 mls/hr 07/28/22 09:00 07/29/22 09:10 Zosyn 3.375 Gm/D5w 50ml Pm IVPB 100 mls/hr Q6H KAM Administration Sodium Chloride 1,000 mls @ 150 mls/hr 07/28/22 03:25 07/29/22 13:32 Normal Saline Iv IV CONT 150 mls/hr .Q6H40M KAM Administration Heparin Sodium/Dextrose 25,000 units in 250 mls @ 17 mls/hr 07/28/22 16:00 07/29/22 13:31 Heparin Sodium/D5w 100 Units/Ml IV CONT 1,700 units/hr .[id number] KAM 17 mls/hr Administration Protocol 1,700 UNITS/HR Morphine Sulfate 4 mg 07/28/22 03:20 Morphine Sulfate (*Crx) 4 Mg/Ml Inj IV PUSH Q4H PRN Pain Rated 7-10 Ondansetron HCl 4 mg 07/28/22 03:13 Ondansetron Inj 4 Mg/2 Ml Vial IV PUSH Q4H PRN Nausea Pantoprazole Sodium 40 mg 07/28/22 09:00 07/29/22 09:03 Pantoprazole Sodium Iv 40 Mg Vial IV PUSH 40 mg BID KAM Administration Radiology Results: ITS Impressions Abdomen/Pelvis CT 07/28/22 08:16 IMPRESSION: 1. Acute interstitial pancreatitis. 2. Portal vein thrombosis in anterior segment right hepatic lobe. 3.
[2022-07-29 15:57] LABS: Partial Thromboplastin Time 147.3 SECONDS (22.3-36.8)
[2022-07-29 15:59] LABS: Magnesium 2.3 mg/dL (1.6-2.3)
[2022-07-29 16:38] LABS: Partial Thromboplastin Time 136.4 SECONDS (22.3-36.8)
[2022-07-29 22:00] VITALS: PULSE 63; RESP 20; TEMP 36.6; O2SAT 98
[2022-07-30 00:14] LABS: Partial Thromboplastin Time 82.1 SECONDS (22.3-36.8)
[2022-07-30 06:00] VITALS: BP 122/62; PULSE 59; RESP 20; TEMP 36.4; O2SAT 98
[2022-07-30 06:11] LABS: Basophils Absolute Auto 0.1 K/mm3 (0.0-0.1); Basophils Percent Auto 0.4 % (0.2-1.2); Eosinophils Absolute Auto 0.6 K/mm3 (0-0.3); Eosinophils Percent Auto 4.5 % (0-4.4); Hematocrit 39.1 % (42.0-52.0); Hemoglobin 13.5 g/dL (14.0-18.0); Immature Granulocyte Absolute 0.13 K/mm3 (0.00-0.031); Immature Granulocyte Percent A 1.1 % (0-0.5); Lymphocytes Absolute Auto 1.92 K/mm3 (0.9-3.2); Lymphocytes Percent Auto 15.8 % (18.3-44.2); Mean Corpuscular HGB Conc 34.5 g/dl (32-36); Mean Corpuscular Hemoglobin 28.8 pg (26-34); Mean Corpuscular Volume 83.5 fl (80-100); Mean Platelet Volume 10.1 fl (7.4-10.4); Monocytes Absolute Auto 0.8 K/mm3 (0.1-0.6); Monocytes Percent Auto 6.9 % (2.6-8.5); Neutrophils Absolute Auto 8.6 K/mm3 (1.3-6.7); Neutrophils Percent Auto 71.3 % (45.5-73.1); Platelet Count Result 440 k/mm3 (150-375); Red Blood Count 4.68 M/mm3 (4.6-6.20); Red Cell Distribution Width 15.2 % (11.5-14.5); White Blood Count 12.1 K/mm3 (4.5-10.0)
[2022-07-30 06:18] LABS: Alanine Aminotransferase 72 U/L (6-50); Albumin Level 2.9 g/dL (3.5-5.1); Alkaline Phosphatase 293 U/L (38-126); Anion Gap 10 mmol/L (8-16); Aspartate Amino Transferase 86 U/L (17-59); Bilirubin,Total 4.1 mg/dL (0.2-1.3); Blood Urea Nitrogen 14 mg/dL (9-20); Calcium 7.8 mg/dL (8.4-10.2); Carbon Dioxide 23 mmol/L (22-30); Chloride 105 mmol/L (98-107); Estimated CRCL calculation 84 ml/min; Estimated Glomerular Filt Rate > 60; Glucose 71 mg/dL (65-110); Potassium 3.4 mmol/L (3.4-5.0); Sodium 138 mmol/L (137-145)
[2022-07-30] MEDS: PANTOPRAZOLE SODIUM IV 40 MG VIAL IV PUSH ×2 (08:04→16:56)
[2022-07-30] MEDS: SODIUM CHLORIDE 0.9% IV 1,000 ML 150 ML IV CONT ×2 (08:04→14:43)
[2022-07-30 08:46] LABS: Partial Thromboplastin Time 95.7 SECONDS (22.3-36.8)
[2022-07-30] MEDS: HEPARIN SOD/D5W 100 UNITS/ML 25,000 UNITS/250 ML BAG 14 UNITS IV CONT (09:27)
--- NOTE | 2022-07-30 11:24 | ECHO_ITS ---
Patient Info Name: Nelson Barajas Age: 77 years : 1945 Gender: Male Ht: 72 in Wt: 184 lbs BSA: 2.07 m2 HR: 59 bpm BP: 122 / 62 mmHg Heart Rhythm: Sinus Rhythm Technical Quality: Fair Exam Date: 07/30/2022 1:03 PM Exam Location: [facility] Card Pulmonary Patient Status: Inpatient Admit Date: 07/28/2022 Staff Ordering Physician: Davey Sin MD [employer] Adjuster: Serene Orozco RDCS Attending Provider: Regis Leija MD Referring Physician: Merrick VARGHESE; Exam Type: CA echo doppler color flow Study Info Indications - interstitial lung disease Complete two-dimensional, color flow and Doppler transthoracic echocardiogram is performed. Summary 1. Complete two-dimensional, color flow and Doppler transthoracic echocardiogram is performed. 2. Left ventricular chamber dimension is normal. 3. Left ventricular systolic function is normal, estimated at 60-65%. 4. The left ventricular diastolic function is abnormal. 5. E/e' 11 is mildly elevated. 6. There is mild aortic valve sclerosis. 7. There is trace mitral valve regurgitation. 8. There is trace tricuspid valve regurgitation. 9. No pulmonary hypertension, estimated pulmonary arterial systolic pressure is 34 mmHg. Left Ventricle E/e' 11 is mildly elevated. Left ventricular chamber dimension is normal. Left ventricular systolic function is normal, estimated at 60-65%. The left ventricular diastolic function is abnormal. Right Ventricle Right ventricular systolic function is normal and with normal TAPSE 1.8 cm. Right ventricular chamber dimension is normal. Left Atria Left atrial chamber dimension is normal. Right Atria Right atrial chamber dimension is normal. Aortic Valve The aortic valve is trileaflet. There is mild aortic valve sclerosis. There is no aortic valve stenosis. There is no aortic valve regurgitation. Pulmonic Valve There is no pulmonic regurgitation. Mitral Valve There is no mitral valve stenosis. There is trace mitral valve regurgitation. Tricuspid Valve There is trace tricuspid valve regurgitation. No pulmonary hypertension, estimated pulmonary arterial systolic pressure is 34 mmHg. Pericardium/Pleural There is no pericardial effusion. Inferior Vena Cava Normal inferior vena cava with >50% collapse upon inspiration consistent with normal right atrial pressure, 5 mmHg. Aorta The aortic root size at the sinus of Valsalva is normal. Left Ventricular Outflow Tract Name Value Normal LVOT 2D LVOT Diameter 2.0 cm LVOT Doppler LVOT Peak Gradient 3 mmHg LVOT Mean Gradient 1 mmHg LVOT VTI 19 cm LVOT VTI/AV VTI Ratio 0.7 LVOT Stroke Volume 59 ml LVOT CO 3.4 l/min LVOT CI 1.6 l/min/m2 Pulmonic Valve Name Value Normal
--- NOTE | 2022-07-30 11:27 | PM.CNPUL ---
Assessment and Plan Assessment and plan (1) Interstitial lung disease: Code(s): J84.9 - Interstitial pulmonary disease, unspecified Status: Acute Assessment and Plan: Clinically the patient has no respiratory complaints, is on room air with saturations 99% and has a CT scan that is consistent with UIP with peripheral and basilar predominant septal thickening, ground-glass infiltrates and honeycombing. I have no prior chest imaging and no prior PFTs so I am unable to assess the rate of progression of this disease.. 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 I will order a ANDRES screen that includes 11 different auto antibodies, an ANCA screen, a rheumatoid factor, anti CCP antibody, hypersensitivity pneumonitis panel, a CPK, and an aldolase level. I will order an echocardiogram to assess LV function, RV function and pulmonary pressures. I will order an overnight oximetry to assess his oxygenation at night. Prior to discharge the patient should have a formal home O2 assessment. Patient is asymptomatic from a respiratory perspective and at this time I will initiate no medications. He will need outpatient PFTs. Discussed with Dr. James. Will follow with you History of Present Illness History of Present Illness Consult date: 07/30/22 Chief complaint: acute pancreatitis,gb wall thickening,hyperbilitub Narrative: 07/30/2022: This is a new pulmonary consult for interstitial lung disease. History obtained from patient, family members in the room and [id number] on speaker phone. 77-year-old with no significant past medical history presented to the emergency department on 07/27 with abdominal pain, fever, nausea vomiting and diarrhea. In the emergency room his room air saturations were 97%, he had coarse breath sounds his white blood cell count was 16.9 with eosinophils 0.2%. His total bili was 8.5 he had elevated LFTs and a lipase of 6610. CT scan of the abdomen showed no acute cholecystitis with mild fat stranding around the pancreas and portal vein thrombosis. Patient was diagnosed with probable gallstone pancreatitis. The CT scan of the abdomen also showed basilar interstitial lung disease with honeycombing. Patient was started on Zosyn. Patient had a CT scan of the chest on 07/28/2022 which demonstrated peripheral and basilar predominant septal thickening, ground-glass infiltrates was mild areas of consolidation and peripheral honeycombing consistent with UIP. His total bilirubin has decreased to 4.1 and his lipase is decreased to 2831 and he is tolerating clear liquids with no abdominal pain. The patient has never had any respiratory limitations in his life. He states that now he can walk 1 mi without any dyspnea on exertion. He frequently goes to [employer] and walks 40 minutes without having to stop for breathing. He has no chronic cough, no chronic phlegm production, no chest pain. He is on no respiratory medicines. He has no history of chronic aspiration. The patient denies chronic fevers, rashes, arthritis, prior cancer, prior chemotherapy, prior radiation, or prior exposure to birds and has no new occupational exposures. The patient smoked 4 cigarettes a day from age 15 to 62, for total of 9.4 pack years. Patient denies vaping, illicit drug use, sandblasting, welding, asbestos were, professional painting or steel head miller. 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 07/30 Currently the patient is on room air and no respiratory distress with saturations 99%. His white blood cell count is 12.1, his creatinine is 0.7. He is on day 3 of Zosyn. DATA: EXAMINATION: CT chest high resolution [facility] DATE: 07/28/2022 16:17 INDICATION: Interstitial lung disease TECHNIQUE: Computed to
[2022-07-30 12:00] LABS: Creatine Kinase 43 U/L (55-170)
[2022-07-30 12:10] LABS: NT Pro B Type Natriuretic Pept 1270 pg/mL (5-100)
[2022-07-30 12:12] LABS: Rheumatoid Factor < 8.6 IU/ML (<12)
[2022-07-30 14:00] VITALS: BP 151/74; PULSE 60; RESP 18; TEMP 36.4; O2SAT 98
[2022-07-30 14:25] LABS: Partial Thromboplastin Time 93.2 SECONDS (22.3-36.8)
--- NOTE | 2022-07-30 14:39 | WPDGIPROGNO ---
Progress Note: A&P Assessment and Plan (1) Gallstone pancreatitis: Code(s): K85.10 - Biliary acute pancreatitis without necrosis or infection Status: Acute Assessment and Plan: doing better, bili trending down nicely, no choledocholithiasis evaluated by surgery, conservative treatment in setting of PVT ok to advance diet (2) Portal vein thrombosis: Code(s): I81 - Portal vein thrombosis Status: Acute Assessment and Plan: on heparin gtt and will go home with oral anticoagulation- seeing by hematology (3) Elevated liver enzymes: Code(s): R74.8 - Abnormal levels of other serum enzymes Status: Acute Assessment and Plan: monitor, trending down and overall better (4) Upper abdominal pain: Code(s): R10.10 - Upper abdominal pain, unspecified Status: Acute Assessment and Plan: improving, will start liquid diet (5) Interstitial lung disease: Code(s): J84.9 - Interstitial pulmonary disease, unspecified Status: Acute Subjective Date/time seen: 07/30/22 14:39 Interval history: pain almost gone, no nausea, doing great Review of Systems Review of Systems: All systems reviewed & are unremarkable except as noted in HPI and below Exam Const: General: comfortable and no acute distress HENMT: Face/Nose/Sinus: Normal nares present Eyes: General: appearance normal, both eyes and all related structures Neck: Neck: no JVD Resp: Auscultation: clear to auscultation bilaterally Cardio: Rate: regular rate Rhythm: regular rhythm GI: Inspection: non-distended GI Palp: Yes Soft to palpation and No Tenderness to palpation present (GI) Auscultation: normal bowel sounds Skin: General skin exam: normal color Neuro: Speech: normal speech Extrem: General: normal to inspection Psych: Mental Status: mental status grossly normal Objective Data Vital Signs Vital Signs: Vital Signs - 24 hr 07/29/22 22:00 07/29/22 21:52 07/30/22 06:00 Temperature 97.9 F 97.5 F L Pulse Rate 63 59 L Respiratory Rate 20 20 Blood Pressure 122/62 Pulse Oximetry 98 98 Oxygen Delivery Room Air 07/30/22 08:00 07/30/22 14:00 Temperature 97.6 F Pulse Rate 60 Respiratory Rate 18 Blood Pressure 151/74 H Pulse Oximetry 98 Oxygen Delivery Room Air Intake/Output Intake/Output: Intake & Output 07/27/22 07/28/22 07/29/22 07/30/22 23:59 23:59 23:59 23:59 Intake Total 3304 3950 1350 Output Total 200 Balance 3304 3950 1150 Meds/Results Medications: Active Medications Generic Name Dose Route Start Last Admin Trade Name Freq PRN Reason Stop Dose Admin Heparin Sodium (Porcine) 6,500 units 07/28/22 15:28 Heparin Sodium 5,000 Units/Ml Vial IV PUSH PRN PRN aPTT less than 55 seconds Heparin Sodium (Porcine) 3,500 units 07/28/22 15:28 07/29/22 08:54 Heparin Sodium 5,000 Units/Ml Vial IV PUSH 3,500 units PRN PRN Administration aPTT 55 - 70 seconds Piperacillin/Tazobactam/Dextrose 3.375 gm in 50 mls @ 100 mls/hr 07/28/22 09:00 07/30/22 08:35 Zosyn 3.375 Gm/D5w 50ml Pm IVPB Infused Q6H KAM Infusion Sodium Chloride 1,000 mls @ 150 mls/hr 07/28/22 03:25 07/30/22 08:04 Normal Saline Iv IV CONT 150 mls/hr .Q6H40M KAM Administration Heparin Sodium/Dextrose 25,000 units in 250 mls @ 14 mls/hr 07/28/22 16:00 07/30/22 09:27 Heparin Sodium/D5w 100 Units/Ml IV CONT 1,400 units/hr .[id number] KAM 14 mls/hr Administration Protocol 1,400 UNITS/HR Morphine Sulfate 4 mg 07/28/22 03:20 Morphine Sulfate (*Crx) 4 Mg/Ml Inj IV PUSH Q4H PRN Pain Rated 7-10 Ondansetron HCl 4 mg 07/28/22 03:13 Ondansetron Inj 4 Mg/2 Ml Vial IV PUSH Q4H PRN Nausea Pantoprazole Sodium 40 mg 07/28/22 09:00 07/30/22 08:04 Pantoprazole Sodium Iv 40 Mg Vial IV PUSH 40 mg BID KAM Administration Perflutren Lipid Microsphere 0 ml 07/30/22 11:24 P
--- NOTE | 2022-07-30 15:54 | PM.IMPN ---
Progress Note: A&P Assessment and Plan (1) Portal vein thrombosis: Code(s): I81 - Portal vein thrombosis Status: Acute Assessment and Plan: Appreciate Hematology/Oncology consultation, continue heparin drip, no need for hypercoagulable workup at this time, no family history or personal history of blood clots, will plan to switch to Eliquis 5 mg twice daily and follow-up with Oncology in the office, CT scan of the abdomen to be done in 2 months and potentially hypercoagulable workup can be performed at that time (2) Acute pancreatitis: Qualifiers: Acute pancreatitis complication: no infection or necrosis Pancreatitis type: unspecified pancreatitis type Qualified Code(s): K85.90 - Acute pancreatitis without necrosis or infection, unspecified Code(s): K85.90 - Acute pancreatitis without necrosis or infection, unspecified Status: Acute Assessment and Plan: Improving, started on clear liquid diet, appreciate GI consultation (3) Hyperbilirubinemia: Code(s): E80.6 - Other disorders of bilirubin metabolism Status: Acute Assessment and Plan: Improving, defer further management to GI bilirubin trending down No choledocholithiasis but her MRCP Hyperbilirubinemia is improving (4) Interstitial lung disease: Code(s): J84.9 - Interstitial pulmonary disease, unspecified Status: Acute Assessment and Plan: New finding of usual interstitial pneumonia on CT chest, consult Pulmonary for further care and outpatient management, no intervention necessary at this time, stable Clinically no respiratory symptoms Further hypersensitivity workup in process Echo overnight pulse oximetry Plan DVT prophylaxis with heparin drip GI prophylaxis with PPI Code status full code Subjective Date/time seen: 07/30/22 15:54 Interval history: no overnight events. Feeling better. No further nausea vomiting or diarrhea or abdominal pain. Tolerating diet. Review of Systems Review of Systems: All systems reviewed & are unremarkable except as noted in HPI and below Exam Narrative: General: Alert oriented per baseline, no acute distress HEENT: Atraumatic, normocephalic, mucous membranes moist CV: Regular rate and rhythm, S1, S2 Lungs: Clear to auscultation bilaterally, no rales or crackles noted, no wheezes, good air entry Abdomen: Nontender to palpation , soft Extremities: Normal to inspection Skin: No rashes noted, no lesions or wounds seen Objective Data Vital Signs Vital Signs: Vital Signs - 24 hr 07/29/22 22:00 07/29/22 21:52 07/30/22 06:00 Temperature 97.9 F 97.5 F L Pulse Rate 63 59 L Respiratory Rate 20 20 Blood Pressure 122/62 Pulse Oximetry 98 98 Oxygen Delivery Room Air 07/30/22 08:00 07/30/22 14:00 Temperature 97.6 F Pulse Rate 60 Respiratory Rate 18 Blood Pressure 151/74 H Pulse Oximetry 98 Oxygen Delivery Room Air Intake/Output Intake/Output: Intake & Output 07/27/22 07/28/22 07/29/22 07/30/22 23:59 23:59 23:59 23:59 Intake Total 3304 3950 2400 Output Total 200 Balance 3304 3950 2200 Meds/Results Medications: Active Medications Generic Name Dose Route Start Last Admin Trade Name Freq PRN Reason Stop Dose Admin Heparin Sodium (Porcine) 6,500 units 07/28/22 15:28 Heparin Sodium 5,000 Units/Ml Vial IV PUSH PRN PRN aPTT less than 55 seconds Heparin Sodium (Porcine) 3,500 units 07/28/22 15:28 07/29/22 08:54 Heparin Sodium 5,000 Units/Ml Vial IV PUSH 3,500 units PRN PRN Administration aPTT 55 - 70 seconds Piperacillin/Tazobactam/Dextrose 3.375 gm in 50 mls @ 100 mls/hr 07/28/22 09:00 07/30/22 15:19 Zosyn 3.375 Gm/D5w 50ml Pm IVPB Infused Q6H KAM Infusion Sodium Chloride 1,000 mls @ 150 mls/hr 07/28/22 03:25 07/30/22 14:43 Normal Saline Iv IV CONT 150 mls/hr .Q6H40M KAM Administration Heparin Sodium/Dextrose 25,000 units in 250 mls @ 1
[2022-07-30 21:41] VITALS: BP 137/71; PULSE 66; RESP 14; TEMP 36.7; O2SAT 96
[2022-07-31] MEDS: SODIUM CHLORIDE 0.9% IV 1,000 ML 150 ML IV CONT ×2 (02:12→10:56)
[2022-07-31] MEDS: HEPARIN SOD/D5W 100 UNITS/ML 25,000 UNITS/250 ML BAG 14 UNITS IV CONT (02:20)
[2022-07-31 06:00] VITALS: BP 128/70; PULSE 58; RESP 16; TEMP 36.3; O2SAT 95
[2022-07-31 07:22] LABS: Basophils Absolute Auto 0.1 K/mm3 (0.0-0.1); Basophils Percent Auto 0.7 % (0.2-1.2); Eosinophils Absolute Auto 0.5 K/mm3 (0-0.3); Eosinophils Percent Auto 4.3 % (0-4.4); Hematocrit 41.2 % (42.0-52.0); Immature Granulocyte Absolute 0.11 K/mm3 (0.00-0.031); Lymphocytes Absolute Auto 2.75 K/mm3 (0.9-3.2); Lymphocytes Percent Auto 24.4 % (18.3-44.2); Mean Corpuscular Hemoglobin 28.7 pg (26-34); Mean Corpuscular Volume 84.6 fl (80-100); Mean Platelet Volume 9.9 fl (7.4-10.4); Monocytes Absolute Auto 0.8 K/mm3 (0.1-0.6); Monocytes Percent Auto 7.4 % (2.6-8.5); Neutrophils Percent Auto 62.2 % (45.5-73.1); Platelet Count Result 507 k/mm3 (150-375); Red Blood Count 4.87 M/mm3 (4.6-6.20); Red Cell Distribution Width 15.4 % (11.5-14.5); White Blood Count 11.3 K/mm3 (4.5-10.0)
[2022-07-31 07:29] LABS: Alanine Aminotransferase 76 U/L (6-50); Alkaline Phosphatase 300 U/L (38-126); Anion Gap 10 mmol/L (8-16); Aspartate Amino Transferase 101 U/L (17-59); Bilirubin,Total 3.9 mg/dL (0.2-1.3); Blood Urea Nitrogen 9 mg/dL (9-20); Calcium 8.1 mg/dL (8.4-10.2); Carbon Dioxide 26 mmol/L (22-30); Chloride 105 mmol/L (98-107); Estimated CRCL calculation 84 ml/min; Estimated Glomerular Filt Rate > 60; Glucose 88 mg/dL (65-110); Magnesium 2.2 mg/dL (1.6-2.3); Potassium 3.5 mmol/L (3.4-5.0); Sodium 141 mmol/L (137-145)
[2022-07-31 07:37] LABS: Partial Thromboplastin Time 111.7 SECONDS (22.3-36.8)
[2022-07-31] MEDS: PANTOPRAZOLE SODIUM IV 40 MG VIAL IV PUSH ×2 (08:01→16:10)
--- NOTE | 2022-07-31 08:29 | PM.PNPUL ---
Progress Note: A&P Assessment and Plan (1) Interstitial lung disease: Code(s): J84.9 - Interstitial pulmonary disease, unspecified Status: Acute Assessment and Plan: Clinically the patient has no respiratory complaints, is on room air with saturations 99% and has a CT scan that is consistent with UIP with peripheral and basilar predominant septal thickening, ground-glass infiltrates and honeycombing. I have no prior chest imaging and no prior PFTs so I am unable to assess the rate of progression of this disease.. 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 I will order a ANDRES screen that includes 11 different auto antibodies, an ANCA screen, a rheumatoid factor, anti CCP antibody, hypersensitivity pneumonitis panel, a CPK, and an aldolase level. I will order an echocardiogram to assess LV function, RV function and pulmonary pressures. I will order an overnight oximetry to assess his oxygenation at night. Prior to discharge the patient should have a formal home O2 assessment. 07/31 interview completed with video assisted professional small engine specialist. patient states that he is having no abdominal pain. Patient states he has having no respiratory issues. He denies fever, chills, cough, phlegm or hemoptysis. He denies any shortness of breath. Room air saturations currently are 97%. Patient had an overnight oximetry on room air with average saturation 93%, low saturation 75%, time with saturation less than or equal to 88% was 16 minutes. Of note his oxygen desaturation index was 12 with intermittent desats. Rheumatoid factor is less than 8.6, remainder of connective tissue disease serologies are pending. Echocardiogram with normal LV function, abnormal diastolic function, normal RV size and function, normal RA size, PASP of 34. Overnight oximetry demonstrates need for supplemental oxygen and I will place on 2 L NC and repeat the apnea link on 2 L tonight. Otherwise he should be discharged on 2 L nasal cannula at night. He should have a home O2 assessment prior to discharge. Patient is asymptomatic from a respiratory perspective and at this time I will initiate no medications. Follow-up in the Pulmonary Clinic in 3-4 weeks, I have given him our business card and informed our construction scheduler. He will need outpatient PFTs and outpateint split night sleep study. Discussed with Dr. Leija, will sign off, call with questions Subjective Date/time seen: 07/31/22 08:29 Interval history: 07/30/2022:? This is a new pulmonary consult for interstitial lung disease. History obtained from patient, family members in the room and [id number] on speaker phone. 77-year-old with no significant past medical history presented to the emergency department on 07/27 with abdominal pain, fever, nausea vomiting and diarrhea.? In the emergency room his room air saturations were 97%, he had coarse breath sounds his white blood cell count was 16.9 with eosinophils 0.2%.? His total bili was 8.5 he had elevated LFTs and a lipase [place] 6610.? CT scan of the abdomen showed no acute cholecystitis with mild fat stranding around the pancreas and portal vein thrombosis.? Patient was diagnosed with probable gallstone pancreatitis.? The CT scan of the abdomen also showed basilar interstitial lung disease with honeycombing.? Patient was started on Zosyn.? Patient had a CT scan of the chest on 07/28/2022 which demonstrated peripheral and basilar predominant septal thickening, ground-glass infiltrates was mild areas of consolidation and peripheral honeycombing consistent with UIP. ? His total bilirubin has decreased to 4.1 and his lipase is decreased to 2831 and he is tolerating clear liquids with no abdominal pain. ? The patient has never had any respiratory limitations in his life.? He states that now he can walk 1 mi without any dyspnea on exertion.? He frequently goes to c
--- NOTE | 2022-07-31 09:41 | WPDGIPROGNO ---
Progress Note: A&P Assessment and Plan (1) Gallstone pancreatitis: Code(s): K85.10 - Biliary acute pancreatitis without necrosis or infection Status: Acute Assessment and Plan: he is asymptomatic now, bili trending down nicely, no choledocholithiasis no more abdominal pain and tolerating diet home soon and will need follow up with surgery, conservative treatment in setting of PVT (2) Portal vein thrombosis: Code(s): I81 - Portal vein thrombosis Status: Acute Assessment and Plan: on heparin gtt and will go home with oral anticoagulation- seeing by hematology (3) Elevated liver enzymes: Code(s): R74.8 - Abnormal levels of other serum enzymes Status: Acute Assessment and Plan: monitor, trending down and overall better (4) Upper abdominal pain: Code(s): R10.10 - Upper abdominal pain, unspecified Status: Acute Assessment and Plan: resolved (5) Interstitial lung disease: Code(s): J84.9 - Interstitial pulmonary disease, unspecified Status: Acute Assessment and Plan: by pulmonary Subjective Date/time seen: 07/31/22 09:41 Interval history: doing well, no more pain and had breakfast. Family member at bedside Review of Systems Review of Systems: All systems reviewed & are unremarkable except as noted in HPI and below Exam Const: General: comfortable and no acute distress HENMT: Face/Nose/Sinus: Normal nares present Eyes: General: appearance normal, both eyes and all related structures Neck: Neck: no JVD Resp: Auscultation: clear to auscultation bilaterally Cardio: Rate: regular rate Rhythm: regular rhythm GI: Inspection: non-distended GI Palp: Yes Soft to palpation and No Tenderness to palpation present (GI) Auscultation: normal bowel sounds Skin: General skin exam: normal color Neuro: Speech: normal speech Extrem: General: normal to inspection Psych: Mental Status: mental status grossly normal Objective Data Vital Signs Vital Signs: Vital Signs - 24 hr 07/30/22 14:00 07/30/22 21:41 07/30/22 21:33 Temperature 97.6 F 98.1 F Pulse Rate 60 66 Respiratory Rate 18 14 Blood Pressure 151/74 H 137/71 Pulse Oximetry 98 96 Oxygen Delivery Room Air 07/31/22 06:00 Temperature 97.4 F L Pulse Rate 58 L Respiratory Rate 16 Blood Pressure 128/70 Pulse Oximetry 95 Oxygen Delivery Intake/Output Intake/Output: Intake & Output 07/28/22 07/29/22 07/30/22 07/31/22 23:59 23:59 23:59 23:59 Intake Total 3304 3950 3450 800 Output Total 200 1600 Balance 3304 3950 3250 -800 Meds/Results Medications: Active Medications Generic Name Dose Route Start Last Admin Trade Name Freq PRN Reason Stop Dose Admin Heparin Sodium (Porcine) 6,500 units 07/28/22 15:28 Heparin Sodium 5,000 Units/Ml Vial IV PUSH PRN PRN aPTT less than 55 seconds Heparin Sodium (Porcine) 3,500 units 07/28/22 15:28 07/29/22 08:54 Heparin Sodium 5,000 Units/Ml Vial IV PUSH 3,500 units PRN PRN Administration aPTT 55 - 70 seconds Piperacillin/Tazobactam/Dextrose 3.375 gm in 50 mls @ 100 mls/hr 07/28/22 09:00 07/31/22 08:01 Zosyn 3.375 Gm/D5w 50ml Pm IVPB 125 mls/hr Q6H KAM Administration Sodium Chloride 1,000 mls @ 150 mls/hr 07/28/22 03:25 07/31/22 02:12 Normal Saline Iv IV CONT 150 mls/hr .Q6H40M KAM Administration Heparin Sodium/Dextrose 25,000 units in 250 mls @ 12 mls/hr 07/28/22 16:00 07/31/22 07:48 Heparin Sodium/D5w 100 Units/Ml IV CONT 1,200 units/hr .[id number] KAM 12 mls/hr Titration Protocol 1,200 UNITS/HR Morphine Sulfate 4 mg 07/28/22 03:20 Morphine Sulfate (*Crx) 4 Mg/Ml Inj IV PUSH Q4H PRN Pain Rated 7-10 Ondansetron HCl 4 mg 07/28/22 03:13 Ondansetron Inj 4 Mg/2 Ml Vial IV PUSH Q4H PRN Nausea Pantoprazole Sodium 40 mg 07/28/22 09:00 07/31/22 08:01 Pantoprazole Sodium Iv 40 Mg Vial IV P
--- NOTE | 2022-07-31 11:05 | PCRCNOTE ---
HOME O2 EVAL COMPLETE, NO DAYTIME NEEDS. PT SET UP WITH NOCTURNAL USE. SET UP WITH [facility]. PHONE NUMBER [phone]
[2022-07-31 14:00] VITALS: BP 138/72; PULSE 91; RESP 20; TEMP 36.1; O2SAT 98
[2022-07-31 15:04] LABS: Partial Thromboplastin Time > 200.0 SECONDS (22.3-36.8)
--- NOTE | 2022-07-31 15:36 | PM.IMPN ---
Progress Note: A&P Assessment and Plan (1) Portal vein thrombosis: Code(s): I81 - Portal vein thrombosis Status: Acute Assessment and Plan: Appreciate Hematology/Oncology consultation, continue heparin drip, no need for hypercoagulable workup at this time, no family history or personal history of blood clots, Will switch to Eliquis 5 mg twice daily and follow-up with Oncology in the office, CT scan of the abdomen to be done in 2 months and potentially hypercoagulable workup can be performed at that time Portal vein thrombosis related to acute pancreatitis (2) Acute pancreatitis: Qualifiers: Acute pancreatitis complication: no infection or necrosis Pancreatitis type: unspecified pancreatitis type Qualified Code(s): K85.90 - Acute pancreatitis without necrosis or infection, unspecified Code(s): K85.90 - Acute pancreatitis without necrosis or infection, unspecified Status: Acute Assessment and Plan: Improving, appreciate GI consultation advanced diet as tolerated will stop IV fluid today (3) Hyperbilirubinemia: Code(s): E80.6 - Other disorders of bilirubin metabolism Status: Acute Assessment and Plan: Improving, defer further management to GI bilirubin trending down No choledocholithiasis but her MRCP Hyperbilirubinemia is improving (4) Interstitial lung disease: Code(s): J84.9 - Interstitial pulmonary disease, unspecified Status: Acute Assessment and Plan: New finding of usual interstitial pneumonia on CT chest, consult Pulmonary for further care and outpatient management, no intervention necessary at this time, stable. Discussed with Pulmonary. Will continue to follow up as an outpatient basis. Clinically no respiratory symptoms Further hypersensitivity workup in process Echo With 60-65% diastolic function no significant valvular abnormality overnight pulse oximetryWith hypoxia noted need nocturnal oxygen. Will repeat apnea link with 2 L tonight Plan DVT prophylaxis with heparin drip will be switched to Eliquis GI prophylaxis with PPI Code status full code Subjective Date/time seen: 07/31/22 15:36 Interval history: Seen with the park interpreter today. Reports no abdominal pain nausea vomiting. Tolerating full liquid diet. Diet has been advanced to low-fat by GI. He only had 4 liquid earlier today. No bleeding. Review of Systems Review of Systems: All systems reviewed & are unremarkable except as noted in HPI and below Exam Narrative: General: Alert oriented per baseline, no acute distress HEENT: Atraumatic, normocephalic, mucous membranes moist CV: Regular rate and rhythm, S1, S2 Lungs: Clear to auscultation bilaterally, no rales or crackles noted, no wheezes, good air entry Abdomen: Nontender to palpation , soft Extremities: Normal to inspection Skin: No rashes noted, no lesions or wounds seen Objective Data Vital Signs Vital Signs: Vital Signs - 24 hr 07/30/22 21:41 07/30/22 21:33 07/31/22 06:00 Temperature 98.1 F 97.4 F L Pulse Rate 66 58 L Respiratory Rate 14 16 Blood Pressure 137/71 128/70 Pulse Oximetry 96 95 Oxygen Delivery Room Air 07/31/22 14:00 Temperature 97.0 F L Pulse Rate 91 Respiratory Rate 20 Blood Pressure 138/72 Pulse Oximetry 98 Oxygen Delivery Intake/Output Intake/Output: Intake & Output 07/28/22 07/29/22 07/30/22 07/31/22 23:59 23:59 23:59 23:59 Intake Total 3304 3950 3450 2684 Output Total 200 1600 Balance 3304 3950 3250 1084 Meds/Results Medications: Active Medications Generic Name Dose Route Start Last Admin Trade Name Freq PRN Reason Stop Dose Admin Heparin Sodium (Porcine) 6,500 units 07/28/22 15:28 Heparin Sodium 5,000 Units/Ml Vial IV PUSH PRN PRN aPTT less than 55 seconds Heparin Sodium (Porcine) 3,500 units 07/28/22 15:28 07/29/22 08:54 Heparin Sodium 5,000 Units/Ml Vial IV PUSH 3,500 units PRN PRN Admi
[2022-07-31] MEDS: AMOXICILLIN/CLAVULANATE K 875-125 MG TAB 1 TABLET PO (18:29)
[2022-07-31] MEDS: APIXABAN 5 MG TABLET 10 MG PO (18:30)
[2022-07-31 22:21] VITALS: BP 122/68; PULSE 57; RESP 16; TEMP 36.8; O2SAT 97
--- NOTE | 2022-07-31 22:23 | PCRCNOTE ---
apnea link started pt RA 95% SP02.
[2022-08-01 06:00] VITALS: BP 147/79; PULSE 55; RESP 16; TEMP 36.4; O2SAT 99
[2022-08-01 07:45] LABS: Basophils Absolute Auto 0.1 K/mm3 (0.0-0.1); Basophils Percent Auto 0.8 % (0.2-1.2); Eosinophils Absolute Auto 0.4 K/mm3 (0-0.3); Eosinophils Percent Auto 4.2 % (0-4.4); Hematocrit 40.1 % (42.0-52.0); Hemoglobin 13.7 g/dL (14.0-18.0); Immature Granulocyte Percent A 1.1 % (0-0.5); Lymphocytes Absolute Auto 1.89 K/mm3 (0.9-3.2); Lymphocytes Percent Auto 20.1 % (18.3-44.2); Mean Corpuscular HGB Conc 34.2 g/dl (32-36); Mean Corpuscular Hemoglobin 29.1 pg (26-34); Mean Corpuscular Volume 85.3 fl (80-100); Mean Platelet Volume 10.2 fl (7.4-10.4); Monocytes Absolute Auto 0.7 K/mm3 (0.1-0.6); Monocytes Percent Auto 7.3 % (2.6-8.5); Neutrophils Absolute Auto 6.3 K/mm3 (1.3-6.7); Neutrophils Percent Auto 66.5 % (45.5-73.1); Platelet Count Result 483 k/mm3 (150-375); Red Cell Distribution Width 15.4 % (11.5-14.5); White Blood Count 9.4 K/mm3 (4.5-10.0)
[2022-08-01 07:46] LABS: Alanine Aminotransferase 89 U/L (6-50); Alkaline Phosphatase 286 U/L (38-126); Anion Gap 10 mmol/L (8-16); Aspartate Amino Transferase 109 U/L (17-59); Bilirubin,Total 3.4 mg/dL (0.2-1.3); Blood Urea Nitrogen 8 mg/dL (9-20); Calcium 8.1 mg/dL (8.4-10.2); Carbon Dioxide 26 mmol/L (22-30); Chloride 104 mmol/L (98-107); Estimated CRCL calculation 74 ml/min; Estimated Glomerular Filt Rate > 60; Glucose 85 mg/dL (65-110); Lipase 857 U/L (23-300); Magnesium 2.3 mg/dL (1.6-2.3); Potassium 3.5 mmol/L (3.4-5.0); Sodium 140 mmol/L (137-145)
[2022-08-01] MEDS: APIXABAN 5 MG TABLET 10 MG PO (07:51)
[2022-08-01] MEDS: PANTOPRAZOLE SODIUM IV 40 MG VIAL IV PUSH (07:52)
[2022-08-01] MEDS: AMOXICILLIN/CLAVULANATE K 875-125 MG TAB 1 TABLET PO (07:52)
[2022-08-01 09:52] LABS: Atypical Lymphocytes Present; Platelet Estimate Increased (Adequate)
[2022-08-01 09:53] LABS: Hypochromasia 2+ (NORMAL); Schistocytes None Seen (NORMAL)
--- NOTE | 2022-08-01 11:18 | PCRCNOTE ---
PT REQUIRES 2 L NOCTURNAL O2. WILL SET UP WITH [facility] TO ARRANGE HOME O2. NO TANK NEEDED FOR TRANSPORT HOME.
--- NOTE | 2022-08-01 11:45 | PM.DS ---
DS: Admitting Diagnosis Discharge Date 08/01/2022 Admitting Diagnosis abdominal pain DS: Discharge Diagnosis Discharge Diagnosis (1) Portal vein thrombosis: Code(s): I81 - Portal vein thrombosis Status: Acute (2) Acute pancreatitis: Qualifiers: Acute pancreatitis complication: no infection or necrosis Pancreatitis type: unspecified pancreatitis type Qualified Code(s): K85.90 - Acute pancreatitis without necrosis or infection, unspecified Code(s): K85.90 - Acute pancreatitis without necrosis or infection, unspecified Status: Acute (3) Hyperbilirubinemia: Code(s): E80.6 - Other disorders of bilirubin metabolism Status: Acute (4) Interstitial lung disease: Code(s): J84.9 - Interstitial pulmonary disease, unspecified Status: Acute DS: Summary Hospital Course Hospital Course: # portal vein thrombosis: Acute. Started on heparin drip. Hematology-Oncology was consulted. No need for hypercoagulable workup at this time. No family history or personal history of blood clot. Switched to Eliquis which was covered on his plan. He will follow-up with oncology for follow-up CT scan and potential hypercoagulable workup. 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 with underlying acute pancreatitis this could be the underlying etiology. # acute pancreatitis: Lipase level elevated on admission GI was consulted. Treated with IV fluid with continued improvement. By the time of discharge he was able to tolerate diet with no nausea vomiting # hyperbilirubinemia / elevated liver enzymes: Improving, GI consulted. General surgery was also consulted for possible gallstone pancreatitis. MRCP was done which showed no choledocholithiasis. Hyperbilirubinemia continue to improve. Recheck labs at discharge He does have cholelithiasis and will need cholecystectomy down the line however currently avoided due to portal vein thrombosis and need to be on anticoagulation at least for few months # interstitial lung disease: New finding of usual interstitial pneumonia on CT chest, consulted Pulmonary for further care and outpatient management, no intervention necessary at this time, stable.? Discussed with Pulmonary.? Will continue to follow up as an outpatient basis. Clinically no respiratory symptoms Further hypersensitivity workup in process Echo? With 60-65% diastolic function no significant valvular abnormality ?overnight pulse oximetry With No significant hypoxia. No need to set up oxygen per Pulmonary He will follow-up as an outpatient basis. # DVT prophylaxis with heparin drip will be switched to Eliquis #Code status full code Time Spent with Patient Time attestation: Total time spent providing and/or coordinating discharge services: 45 minutes Exam Narrative: General: Alert oriented per baseline, no acute distress HEENT: Atraumatic, normocephalic, mucous membranes moist CV: Regular rate and rhythm, S1, S2 Lungs: Clear to auscultation bilaterally, no rales or crackles noted, no wheezes, good air entry Abdomen: Nontender to palpation , soft Extremities: Normal to inspection Skin: No rashes noted, no lesions or wounds seen DS: Data Data Completed and Pending Completed studies during hospitalization: Exam Type: ? ? CA echo doppler color flow Study Info Indications ?? ? - interstitial lung disease Complete two-dimensional, color flow and Doppler transthoracic echocardiogram is performed. Account #: ? ? [id number] Summary ? 1. Complete two-dimensional, color flow and Doppler transthoracic echocardiogram is performed. ? 2. Left ventricular chamber dimension is normal. ? 3. Left ventricular systolic function is normal, estimated at 60-65%. ? 4. The left ventricular diastolic function is abnormal. ? 5. E/e' 11 is mildly elevated. ? 6. There is mild aortic valve sclerosis. ? 7. There is trace mi
--- NOTE | 2022-08-01 12:06 | WPDGIPROGNO ---
Progress Note: A&P Assessment and Plan (1) Gallstone pancreatitis: Code(s): K85.10 - Biliary acute pancreatitis without necrosis or infection Status: Acute Assessment and Plan: he is asymptomatic now, bili still is trending down and no evidence of choledocholithiasis no more abdominal pain and tolerating diet home today and will need follow up with surgery but conservative treatment for now in setting of PVT (2) Portal vein thrombosis: Code(s): I81 - Portal vein thrombosis Status: Acute Assessment and Plan: on heparin gtt and he is going home with oral anticoagulation- seeing by hematology (3) Elevated liver enzymes: Code(s): R74.8 - Abnormal levels of other serum enzymes Status: Acute Assessment and Plan: monitor, trending down and overall better (4) Upper abdominal pain: Code(s): R10.10 - Upper abdominal pain, unspecified Status: Acute Assessment and Plan: resolved (5) Interstitial lung disease: Code(s): J84.9 - Interstitial pulmonary disease, unspecified Status: Acute Assessment and Plan: by pulmonary Subjective Date/time seen: 08/01/22 12:06 Interval history: no more pain and tolerating diet, going home today Review of Systems Review of Systems: All systems reviewed & are unremarkable except as noted in HPI and below Exam Const: General: comfortable and no acute distress HENMT: Face/Nose/Sinus: Normal nares present Eyes: General: appearance normal, both eyes and all related structures Neck: Neck: no JVD Resp: Auscultation: clear to auscultation bilaterally Cardio: Rate: regular rate Rhythm: regular rhythm GI: Inspection: non-distended GI Palp: Yes Soft to palpation and No Tenderness to palpation present (GI) Auscultation: normal bowel sounds Skin: General skin exam: normal color Neuro: Speech: normal speech Extrem: General: normal to inspection Psych: Mental Status: mental status grossly normal Objective Data Vital Signs Vital Signs: Vital Signs - 24 hr 07/31/22 14:00 07/31/22 22:21 08/01/22 06:00 Temperature 97.0 F L 98.2 F 97.5 F L Pulse Rate 91 57 L 55 L Respiratory Rate 20 16 16 Blood Pressure 138/72 122/68 147/79 H Pulse Oximetry 98 97 99 Oxygen Delivery 08/01/22 08:00 Temperature Pulse Rate Respiratory Rate Blood Pressure Pulse Oximetry Oxygen Delivery Room Air Intake/Output Intake/Output: Intake & Output 07/29/22 07/30/22 07/31/22 08/01/22 23:59 23:59 23:59 23:59 Intake Total 3950 3450 3998 600 Output Total 200 2925 Balance 3950 3250 1073 600 Meds/Results Medications: Active Medications Generic Name Dose Route Start Last Admin Trade Name Freq PRN Reason Stop Dose Admin Amoxicillin/Clavulanate Potassium 1 tablet 07/31/22 17:00 08/01/22 07:52 Amoxicillin/Clavulanate K 875-125 Mg Tab PO 08/06/22 23:59 1 tablet Q12HR KAM Administration Apixaban 10 mg 07/31/22 19:00 08/01/22 07:51 Apixaban 5 Mg Tablet PO 10 mg Q12HR KAM Administration Heparin Sodium (Porcine) 6,500 units 07/28/22 15:28 Heparin Sodium 5,000 Units/Ml Vial IV PUSH PRN PRN aPTT less than 55 seconds Heparin Sodium (Porcine) 3,500 units 07/28/22 15:28 07/29/22 08:54 Heparin Sodium 5,000 Units/Ml Vial IV PUSH 3,500 units PRN PRN Administration aPTT 55 - 70 seconds Morphine Sulfate 4 mg 07/28/22 03:20 Morphine Sulfate (*Crx) 4 Mg/Ml Inj IV PUSH Q4H PRN Pain Rated 7-10 Ondansetron HCl 4 mg 07/28/22 03:13 Ondansetron Inj 4 Mg/2 Ml Vial IV PUSH Q4H PRN Nausea Pantoprazole Sodium 40 mg 07/28/22 09:00 08/01/22 07:52 Pantoprazole Sodium Iv 40 Mg Vial IV PUSH 40 mg BID KAM Administration Radiology Results: ITS Impressions Abdomen/Pelvis CT 07/28/22 08:16 IMPRESSION: 1. Acute interstitial pancreatitis. 2. Portal vein thrombosis in anterior segment right hepatic lobe. 3. G
[2022-08-03 04:05] LABS: Aldolase 4.3 U/L (<=8.1)
[2022-08-03 13:32] LABS: Anti Cyclic Citrullinated Pept <16 Units (<20)
[2022-08-04 09:02] LABS: ANA Cascade Screen Negative (Negative)
[2022-08-04 23:08] LABS: ANCA Screen Negative (Negative)
== END 2022-08-01 12:50 | disposition home or self-care (01) | DRG 441 ==
LOC: ANHED 07-28 03:43 → ANH3MEDSUR 07-28 04:23
PROVIDERS: Emergency Medicine; Internal Medicine Gastroenterology; Internal Medicine Pulmonary Disease; Physician Assistant; Student in an Organized Health Care Education/Training Program; Surgery; Admitting Provider Internal Medicine; Emergency Provider General Practice; PCP Internal Medicine Infectious Disease; Visit Provider Internal Medicine
DX: I81 Portal vein thrombosis (principal); K85.10 Biliary acute pancreatitis without necrosis or infection; J84.9 Interstitial pulmonary disease, unspecified; Z86.73 Personal history of transient ischemic attack (TIA), and cerebral infarction without residual deficits; Z87.891 Personal history of nicotine dependence; Z79.899 Other long term (current) drug therapy; Z20.822 Contact with and (suspected) exposure to COVID-19
CPT/HCPCS: 36415; 71046; 71250; 74177; 74183; 76376; 76705; 80053; 80074; 81001; 82085; 82248; 82550; 83605; 83690; 83735; 83880; 84478; 85025; 85610; 85730; 86036; 86038; 86200; 86331; 86430; 86606; 86609; 87040; 93306; 96365; 96375; 99285; A9270; A9577; C9113; J1644; J1741; J2405; J2543; J7030; Q9967; U0003; U0005

== ENCOUNTER 2022-08-08 08:36 | Outpatient (CLI) | payer OTHER, SELFPAY ==
[2022-08-08 09:21] LABS: Basophils Absolute Auto 0.1 K/mm3 (0.0-0.1); Basophils Percent Auto 0.7 % (0.2-1.2); Eosinophils Absolute Auto 0.3 K/mm3 (0-0.3); Eosinophils Percent Auto 3.5 % (0-4.4); Hematocrit 46.1 % (42.0-52.0); Hemoglobin 14.9 g/dL (14.0-18.0); Immature Granulocyte Absolute 0.04 K/mm3 (0.00-0.031); Immature Granulocyte Percent A 0.5 % (0-0.5); Lymphocytes Absolute Auto 3.22 K/mm3 (0.9-3.2); Lymphocytes Percent Auto 36.5 % (18.3-44.2); Mean Corpuscular HGB Conc 32.3 g/dl (32-36); Mean Corpuscular Hemoglobin 29.2 pg (26-34); Mean Corpuscular Volume 90.4 fl (80-100); Mean Platelet Volume 10.5 fl (7.4-10.4); Monocytes Absolute Auto 0.6 K/mm3 (0.1-0.6); Monocytes Percent Auto 6.8 % (2.6-8.5); Neutrophils Absolute Auto 4.6 K/mm3 (1.3-6.7); Platelet Count Result 406 k/mm3 (150-375); Red Cell Distribution Width 15.3 % (11.5-14.5); White Blood Count 8.8 K/mm3 (4.5-10.0)
== END 2022-08-08 08:37 | disposition home or self-care (01) ==
PROVIDERS: PCP Internal Medicine; Visit Provider Internal Medicine
DX: K85.90 Acute pancreatitis without necrosis or infection, unspecified (principal); R74.8 Abnormal levels of other serum enzymes
CPT/HCPCS: 36415; 85025

== ENCOUNTER 2022-08-12 08:59 | Outpatient (CLI) | payer OTHER, SELFPAY ==
[2022-08-12 09:40] LABS: Alanine Aminotransferase 112 U/L (6-50); Albumin Level 4.1 g/dL (3.5-5.1); Alkaline Phosphatase 283 U/L (38-126); Anion Gap 9 mmol/L (8-16); Aspartate Amino Transferase 101 U/L (17-59); Bilirubin,Total 1.9 mg/dL (0.2-1.3); Blood Urea Nitrogen 9 mg/dL (9-20); Calcium 9.1 mg/dL (8.4-10.2); Carbon Dioxide 29 mmol/L (22-30); Chloride 105 mmol/L (98-107); Estimated Glomerular Filt Rate > 60; Glucose 90 mg/dL (65-110); Potassium 4.4 mmol/L (3.4-5.0); Sodium 143 mmol/L (137-145)
== END 2022-08-12 09:00 | disposition home or self-care (01) ==
LOC: ANHLAB 09:02
PROVIDERS: PCP Internal Medicine; Visit Provider Internal Medicine
DX: K85.90 Acute pancreatitis without necrosis or infection, unspecified (principal); R74.8 Abnormal levels of other serum enzymes
CPT/HCPCS: 36415; 80053

== ENCOUNTER 2022-08-25 10:37 | Outpatient (CLI) | payer OTHER, SELFPAY ==
[2022-08-25 10:56] LABS: Basophils Absolute Auto 0.1 K/mm3 (0.0-0.1); Basophils Percent Auto 0.9 % (0.2-1.2); Eosinophils Absolute Auto 0.4 K/mm3 (0-0.3); Hematocrit 44.8 % (42.0-52.0); Hemoglobin 14.9 g/dL (14.0-18.0); Immature Granulocyte Absolute 0.02 K/mm3 (0.00-0.031); Immature Granulocyte Percent A 0.2 % (0-0.5); Lymphocytes Absolute Auto 2.76 K/mm3 (0.9-3.2); Lymphocytes Percent Auto 32.3 % (18.3-44.2); Mean Corpuscular HGB Conc 33.3 g/dl (32-36); Mean Corpuscular Hemoglobin 29.6 pg (26-34); Mean Corpuscular Volume 88.9 fl (80-100); Mean Platelet Volume 10.6 fl (7.4-10.4); Monocytes Absolute Auto 0.7 K/mm3 (0.1-0.6); Monocytes Percent Auto 8.1 % (2.6-8.5); Neutrophils Absolute Auto 4.6 K/mm3 (1.3-6.7); Neutrophils Percent Auto 53.5 % (45.5-73.1); Platelet Count Result 278 k/mm3 (150-375); Red Blood Count 5.04 M/mm3 (4.6-6.20); Red Cell Distribution Width 15.1 % (11.5-14.5); White Blood Count 8.6 K/mm3 (4.5-10.0)
[2022-08-25 11:03] LABS: Alanine Aminotransferase 60 U/L (6-50); Albumin Level 4.3 g/dL (3.5-5.1); Alkaline Phosphatase 194 U/L (38-126); Anion Gap 7 mmol/L (8-16); Aspartate Amino Transferase 64 U/L (17-59); Bilirubin,Total 1.5 mg/dL (0.2-1.3); Blood Urea Nitrogen 13 mg/dL (9-20); Carbon Dioxide 28 mmol/L (22-30); Chloride 107 mmol/L (98-107); Estimated Glomerular Filt Rate > 60; Glucose 87 mg/dL (65-110); Magnesium 2.2 mg/dL (1.6-2.3); Potassium 4.2 mmol/L (3.4-5.0); Sodium 142 mmol/L (137-145)
[2022-08-25 11:15] LABS: INR 1.2; Prothrombin Time 15.1 Seconds (11.1-14.7)
[2022-08-25 11:16] LABS: Partial Thromboplastin Time 33.2 SECONDS (22.3-36.8)
== END 2022-08-25 10:38 | disposition home or self-care (01) ==
LOC: ANHLAB 10:40
PROVIDERS: PCP Internal Medicine Infectious Disease; Visit Provider Surgery
DX: K85.90 Acute pancreatitis without necrosis or infection, unspecified (principal)
CPT/HCPCS: 36415; 80048; 80076; 83735; 85025; 85610; 85730

== ENCOUNTER 2022-10-09 07:12 | Outpatient (CLI) | payer OTHER, SELFPAY ==
--- NOTE | ~2022-10-09 | CT_ITS ---
CT Abdomen and Pelvis with contrast. History: Portal vein thrombosis. Spiral CT of the abdomen and pelvis was performed after the administration of intravenous contrast. 1 00 cc of Omnipaque 350 was administered intravenously without complication. Dose reduction technique was used on this scan by utilizing automated exposure control and iterative reconstruction technique. The dose-length product (DLP) was 663.24 mGy-cm. COMPARISON: 07/28/2022 Findings: Exam mildly degraded by motion artifact. Scans through the lung bases demonstrate bibasilar chronic interstitial disease, stable from prior exam. The liver, spleen, pancreas, gallbladder, adrenals and right kidney are within normal limits. There i s probable persistent chronic thrombosis of the anterior right hepatic lobe portal vein. The main por van vein, left portal venous tree, and the posterior right hepatic lobe portal venous tree enhances n ormally.. Left renal cysts noted. No evidence of aortic aneurysm. No lymphadenopathy is seen. There is no evidence of bowel obstruction. There is no evidence to suggest acute appendicitis or dive rticulitis. Images through the pelvis were performed. Urinary bladder unremarkable. Prostate gland and seminal ve sicles are unremarkable. No ascites is seen. Impression: Probable chronic thrombosis of the anterior right hepatic lobe portal vein, as seen on prior exam. Ev aluation somewhat suboptimal due to motion artifact. There is no evidence of further propagation or m ore extensive portal vein thrombosis as compared to prior exam. Stable chronic interstitial disease at the lung bases. Reviewed, dictated and finalized at location M. 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 Evaluation somewhat suboptimal due to motion artifact. Ther e is no evidence of further propagation or more extensive portal vein thrombosi s as compared to prior exam. Stable chronic interstitial disease at the lung bases.
[2022-10-09 07:38] LABS: Estimated Glomerular Filt Rate > 60
== END 2022-10-09 07:13 | disposition home or self-care (01) ==
PROVIDERS: PCP Internal Medicine Infectious Disease; Visit Provider Internal Medicine Hematology & Oncology
DX: I81 Portal vein thrombosis (principal); J84.9 Interstitial pulmonary disease, unspecified
CPT/HCPCS: 74177; Q9967

== ENCOUNTER 2023-04-02 16:26 | Outpatient (CLI) | payer OTHER, SELFPAY ==
[2023-04-02 18:27] LABS: Alanine Aminotransferase 29 U/L (6-50); Albumin Level 4.3 g/dL (3.5-5.1); Alkaline Phosphatase 82 U/L (38-126); Aspartate Amino Transferase 33 U/L (17-59); Bilirubin,Total 0.5 mg/dL (0.2-1.3)
== END 2023-04-02 16:27 | disposition home or self-care (01) ==
LOC: ANHLAB 16:28
PROVIDERS: PCP Internal Medicine Infectious Disease; Visit Provider Internal Medicine Gastroenterology
DX: R74.8 Abnormal levels of other serum enzymes (principal); K85.10 Biliary acute pancreatitis without necrosis or infection
CPT/HCPCS: 36415; 80076